=== PATIENT | male | born 1990 | race Caucasian/White ===

== ENCOUNTER 2020-12-08 13:27 | Outpatient (REF) | payer OTHER, SELFPAY | END 2020-12-08 13:28 | disposition home or self-care (01) | LOC: HO.LAB 13:27 | PROVIDERS: Visit Provider Internal Medicine | DX: Z20.822 Contact with and (suspected) exposure to COVID-19 (principal) | CPT/HCPCS: 36415; C9803; U0003; U0005 ==

== ENCOUNTER 2021-12-07 10:38 | Emergency (ER) | payer OTHER, SELFPAY ==
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
[2021-12-07 10:58] VITALS: BP 153/74; PULSE 94; RESP 16; TEMP 36.4; O2SAT 98; BMI 30.1
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
[2021-12-07] MEDS: 0.9 % Sodium Chloride 1,000 ML 999 ML IVCONT ×2 (12:39→14:04)
[2021-12-07 12:44] LABS: MANUAL DIFF FLAG NO
[2021-12-07] MEDS: Acetaminophen 325 MG TABLET 975 MG PO (12:45)
[2021-12-07] MEDS: oxyCODONE HCl Immed Release 5 MG TABLET PO (12:45)
[2021-12-07 12:46] LABS: Basophils Percent Auto 0.4 % (0-2); Eosinophils Absolute Auto 0.1 X10*3/uL (0.0-0.4); Eosinophils Percent Auto 0.7 % (0-4); Hematocrit 39.7 % (42.0-52.0); Hemoglobin 13.3 g/dl (14.0-18.0); Imm Gran Abs Auto 0.07 X10*3/uL (0.00-0.03); Imm Gran Pct Auto 0.7 % (0.0-0.4); Lymphocytes Absolute Auto 1.6 X10*3/uL (1.2-4.9); Lymphocytes Percent Auto 16.5 % (20-40); Mean Corpuscular HGB Conc 33.5 g/dl (31.0-36.0); Mean Corpuscular Hemoglobin 30.6 pg (27.0-33.0); Mean Corpuscular Volume 91.3 fL (80.0-98.0); Mean Platelet Volume 9.9 fL (9.4-12.4); Monocytes Absolute Auto 1.1 X10*3/uL (0.1-1.2); Monocytes Percent Auto 11.8 % (2-11); Neutrophils Absolute Auto 6.7 x10*3/uL (2.0-8.3); Neutrophils Percent Auto 69.9 % (45-73); Platelet Count 250 X10*3/uL (160-400); Red Blood Count 4.35 X10*6/uL (4.60-5.80); Red Cell Distribution Width 12.1 % (11.0-16.0); White Blood Count 9.6 X10*3/uL (4.8-10.8)
[2021-12-07 13:21] LABS: Alanine Aminotransferase 50 U/L (0-40); Albumin Level 3.9 g/dL (3.5-5.0); Alkaline Phosphatase 71 U/L (39-117); Anion Gap 10 (12-20); Aspartate Amino Transferase 96 U/L (5-37); Bilirubin Total 0.9 mg/dL (0.0-1.0); Blood Urea Nitrogen 20 mg/dL (9-16); Calcium 9.5 mg/dL (8.4-10.2); Carbon Dioxide 31 mmol/L (22-29); Chloride 106 mmol/L (96-108); Creatinine Clr Calc Pharmacy 107.9; Estimated Glomerular Filt Rate > 60; Glucose Random 101 mg/dL (60-115); Magnesium 2.2 mg/dL (1.6-2.6); Potassium 4.3 mmol/L (3.3-5.1); Sodium 143 mmol/L (135-145); Total Protein 7.1 g/dL (6.5-8.0)
[2021-12-07 14:38] LABS: COVID-19 Test Negative (Negative)
[2021-12-07] MEDS: iohexoL 350 MG/ML 100 ML INFUS..BTL IV (14:47)
[2021-12-07 15:08] LABS: Appearance Urine CLEAR; Color Urine YELLOW; Glucose Urine UA NEG (NEG); Leukocyte Esterase Urine NEG (NEG); Nitrite Urine NEG (NEG); Urine Blood NEG (NEG); Urine Ketones NEG (NEG); Urine Protein NEG (NEG-TRACE)
== END 2021-12-07 16:55 | disposition home or self-care (01) ==
PROVIDERS: Physician Assistant Medical; Emergency Provider Emergency Medicine
DX: T79.6XXA Traumatic ischemia of muscle, initial encounter (principal); S30.0XXA Contusion of lower back and pelvis, initial encounter; S20.223A Contusion of bilateral back wall of thorax, initial encounter; Y00.XXXA Assault by blunt object, initial encounter; Y93.9 Activity, unspecified; Y92.410 Unspecified street and highway as the place of occurrence of the external cause; Y99.9 Unspecified external cause status; Z20.822 Contact with and (suspected) exposure to COVID-19
CPT/HCPCS: 36415; 70450; 71260; 72125; 74177; 80053; 81003; 82550; 83735; 85025; 85610; 87635; 96360; 96361; 99284; 99291; Q9967

== ENCOUNTER 2023-03-17 00:40 | Emergency (ER) | payer OTHER, SELFPAY ==
[2023-03-17 00:41] VITALS: BP 145/76; PULSE 115; RESP 18; TEMP 36.3; O2SAT 100; BMI 31.9
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
[2023-03-17 00:58] LABS: MANUAL DIFF FLAG NO
[2023-03-17 00:59] LABS: Basophils Percent Auto 0.5 % (0-2); Eosinophils Percent Auto 0.5 % (0-4); Hematocrit 41.8 % (42.0-52.0); Hemoglobin 14.5 g/dl (14.0-18.0); Imm Gran Abs Auto 0.02 X10*3/uL (0.00-0.03); Imm Gran Pct Auto 0.2 % (0.0-0.4); Lymphocytes Absolute Auto 1.3 X10*3/uL (1.2-4.9); Lymphocytes Percent Auto 15.8 % (20-40); Mean Corpuscular HGB Conc 34.7 g/dl (31.0-36.0); Mean Corpuscular Hemoglobin 30.9 pg (27.0-33.0); Mean Corpuscular Volume 88.9 fL (80.0-98.0); Mean Platelet Volume 9.6 fL (9.4-12.4); Monocytes Absolute Auto 0.7 X10*3/uL (0.1-1.2); Monocytes Percent Auto 9.1 % (2-11); Neutrophils Percent Auto 73.9 % (45-73); Platelet Count 305 X10*3/uL (160-400); Red Cell Distribution Width 11.9 % (11.0-16.0); White Blood Count 8.1 X10*3/uL (4.8-10.8)
[2023-03-17 01:20] LABS: Anion Gap 16 (12-20); Blood Urea Nitrogen 19 mg/dL (9-16); Calcium 9.2 mg/dL (8.4-10.2); Carbon Dioxide 23 mmol/L (22-29); Chloride 106 mmol/L (96-108); Creatinine Clr Calc Pharmacy 129.4; Estimated Glomerular Filt Rate > 60; Glucose Random 96 mg/dL (60-115); Potassium 3.8 mmol/L (3.3-5.1); Sodium 141 mmol/L (135-145); Troponin-I High Sensitivity < 2.7 ng/L (<3.5-35.0)
[2023-03-17 01:23] LABS: Alanine Aminotransferase 18 U/L (0-40); Albumin Level 4.1 g/dL (3.5-5.0); Alkaline Phosphatase 83 U/L (39-117); Aspartate Amino Transferase 35 U/L (5-37); Bilirubin Direct 0.1 mg/dL (0.0-0.5); Bilirubin Total 0.4 mg/dL (0.0-1.0); Ethanol 21 mg/dL; Lipase 21 U/L (8-78); Magnesium 2.1 mg/dL (1.6-2.6); Total Protein 7.6 g/dL (6.5-8.0)
--- NOTE | 2023-03-17 01:29 | ED_ITS ---
HPI - Chest Pain General Chief Complaint: Chest Pain Stated Complaint: Stroke like symptoms? Chest pain left arm numbness Time Seen by Provider: 03/17/23 01:06 Source: patient Mode of arrival: ambulatory History of Present Illness HPI narrative: 32-year-old male presents with acute onset of chest pain this evening after drinking alcohol and endorsing that he also snorted cocaine. The chest pain radiated in to the left upper extremity but states at this time has completely resolved. Patient also states that he felt weird in his head but that has also resolved. Patient states he cannot stay as he has things to do but is willing to wait for complete lab work Related Data Previous Rx's Medication Instructions Recorded acetaminophen 500 mg tablet 1,000 mg PO QID PRN fever or pain 12/07/21 (Tylenol Extra Strength) #14 tabs cyclobenzaprine 10 mg tablet 10 mg PO Q8H PRN Muscle spasm #14 12/07/21 tabs oxycodone 5 mg tablet 5 mg PO Q6H PRN pain #14 tabs 12/07/21 Allergies Allergy/AdvReac Type Severity Reaction Status Date / Time No Known Allergies Allergy Unverified 06/24/20 17:51 Review of Systems Review of Systems: Pertinent positives and negatives as stated in HPI [facility] Past Medical History Source: nursing notes reviewed Medical History No known health problems Social History Social History Alcohol intake: current Alcohol intake frequency: a few times a week Alcohol type: beer and wine Smoked in Last 30 Days: Yes Use of substances other than those prescribed or required for medical reasons: Yes Substance Use Type: Crack/Cocaine Advance Directives: No Advance Directives Information Provided: No Physical Exam Vital Signs: Vital Signs: Last Vital Signs Temp 97.3 F 03/17/23 00:41 Pulse 115 H 03/17/23 00:41 Resp 18 03/17/23 00:41 BP 145/76 H 03/17/23 00:41 Pulse Ox 100 03/17/23 00:41 O2 Del Method Room Air 03/17/23 00:41 BMI result Body Mass Index 31.9 VITAL SIGNS: Reviewed. GENERAL: Well developed, well nourished, in no acute distress. HEAD: Normocephalic/atraumatic EYES: PERRLA, EOMI EARS: Ext canals without abnormality NOSE: Nares patent bilateral OROPHARYNX: no oral lesions noted, posterior pharynx clear NECK: Supple, no adenopathy LUNGS: Normal breath sounds. No adventitious sounds or accessory muscle use. S pO2<100> CARDIOVASCULAR: Regular rate and rhythm without noted murmurs ABDOMEN: Soft, non-tender, non-distended with bowel sounds. MUSCULOSKELETAL: No tenderness, deformities, or effusions noted on gross inspection. EXTREMITIES: No cyanosis, clubbing or edema. SKIN: Inspection of the skin reveals no rashes NEUROLOGIC: Alert and oriented x 4. Strength and sensation to light touch were grossly intact x 4, no facial asymmetry, no pronator drift, cranial nerves 2-12 are grossly intact. Medical Decision Making Medical Decision Making MDM Narrative: 32-year-old male who has been doing cocaine for the past 3 weeks and likely experienced an acute FX after snorting cocaine this evening as he stated he had been having chest discomfort for the past couple of days. All of his symptoms have resolved at this time and he does not exhibit any focal deficits. I reviewed all investigations and my interpretation is that this was likely an acute ischemic episode related to cocaine use. Patient is completely asymptomatic, hemodynamically stable, and is demanding to leave. He is, cooperative and was counseled on at stopping the use of cocaine as it could be far worse next time. Differential Diagnosis Please see the discussion above Lab Data Please see the discussion above 03/17/23 00:54 03/17/23 00:54 Labs: Lab Results 03/17/23 03/17/23 03/17/23 Range/Units 00:54 00:54 00:54 WBC 8.1 (4.8-10.8) X10*3/uL RBC 4.70 (4.60-5.80) X10*6/uL Hgb 14.5 (14.0-18.0) g/dl Hct 41.8 L (42.0-52.0) % MCV 88.9 (80.0-98.0) fL MCH 30.9 (27.0-33.0) pg MCHC 34.7 (31.0-36.0) g/dl RDW 11.9 (11.0-16.0) % Plt Count 305 (160-400) X10*3/uL MPV 9.6 (9.4-12.4) fL Immature Gran % (Auto) 0.2 (0.0-0.4) % Neut % (Auto) 73.9 H (45-73) % Lymph % (Auto) 15.8 L (20-40) % [place] % (Auto) 9.1 (2-11) % Eos % (Auto) 0.5 (0-4) % Baso % (Auto) 0.5 (0-2) % Lymph # (Auto) 1.3 (1.2-4.9) X10*3/uL [place] # (Auto) 0.7 (0.1-1.2) X10*3/uL Eos # (Auto) 0.0 (0.0-0.4) X10*3/uL Baso # (Auto) 0.0 (0.0-0.2) X10*3/uL Abs Immat Gran (auto) 0.02 (0.00-0.03) X10*3/uL Absolute Neuts (auto) 6.0 (2.0-8.3) x10*3/uL Absolute Nucleated RBC 0.000 (0.0-0.012) X10*3/uL Nucleated RBC % (auto) 0.0 (0.0-0.2) /100WBC Sodium 141 (135-145) mmol/L Potassium 3.8 (3.3-5.1) mmol/L Chloride 106 (96-108) mmol/L Carbon Dioxide 23 (22-29) mmol/L Anion Gap 16 (12-20) BUN 19 H (9-16) mg/dL Creatinine 0.90 (0.5-1.4) mg/dL Estim Creat Clear Calc 129.4 Estimated GFR > 60 Random Glucose 96 (60-115) mg/dL Calcium 9.2 (8.4-10.2) mg/dL Magnesium 2.1 (1.6-2.6) mg/dL Total Bilirubin 0.4 (0.0-1.0) mg/dL Direct Bilirubin 0.1 (0.0-0.5) mg/dL AST 35 (5-37) U/L ALT 18 (0-40) U/L Alkaline Phosphatase 83 (39-117) U/L Troponin I High Sens < 2.7 (<3.5-35.0) ng/L Total Protein 7.6 (6.5-8.0) g/dL Albumin 4.1 (3.5-5.0) g/dL Lipase 21 (8-78) U/L Ethyl Alcohol 21 mg/dL Independent Interpretation I performed an independent interpretation of an: EKG Interpretation: Sinus tachycardia, HR-103, no STEMI, KS/QRS/QTC is within normal limits. Discharge Plan Discharge Clinical Impression: Cocaine use, Chest pain Patient Disposition: Home, Self-Care Instructions: Chest Pain (ED) Additional Instructions: 1. Please follow-up with primary care provider on Sunday morning. Return ER for any worsening symptoms. Prescriptions: No Action acetaminophen [Tylenol Extra Strength] 500 mg tablet 1,000 mg PO QID PRN (Reason: fever or pain) Qty: 14 0RF cyclobenzaprine 10 mg tablet 10 mg PO Q8H PRN (Reason: Muscle spasm) Qty: 14 0RF oxycodone 5 mg tablet 5 mg PO Q6H PRN (Reason: pain) Qty: 14 0RF
[2023-03-17 01:51] VITALS: BP 121/74; PULSE 83; RESP 16; TEMP 37.1; O2SAT 95
== END 2023-03-17 01:53 | disposition home or self-care (01) ==
PROVIDERS: Emergency Provider Student in an Organized Health Care Education/Training Program
DX: R07.9 Chest pain, unspecified (principal); F14.90 Cocaine use, unspecified, uncomplicated; R00.0 Tachycardia, unspecified
CPT/HCPCS: 36415; 80048; 80076; 80307; 83690; 83735; 84484; 85025; 93005; 99283; 99285

== ENCOUNTER 2023-12-07 10:07 | Emergency (ER) | payer OTHER, SELFPAY ==
[2023-12-07 10:10] VITALS: BP 118/74; PULSE 84; RESP 16; TEMP 36.7; O2SAT 96; BMI 34.0
--- NOTE | 2023-12-07 10:14 | ECG_ITS ---
Test Reason : cp Blood Pressure : / mmHG Vent. Rate : 088 BPM Atrial Rate : 088 BPM P-R Int : 144 ms QRS Dur : 090 ms QT Int : 364 ms P-R-T Axes : 070 022 027 degrees QTc Int : 440 ms Normal sinus rhythm Normal ECG When compared with ECG of 17-MAR-2023 00:46, No significant change was found Referred By: Generic ED Physician Electronically Signed By:EMERSON GRIFFIN
[2023-12-07 10:25] LABS: MANUAL DIFF FLAG NO
[2023-12-07 10:31] LABS: Basophils Percent Auto 0.3 % (0-2); Eosinophils Absolute Auto 0.1 X10*3/uL (0.0-0.4); Eosinophils Percent Auto 1.1 % (0-4); Hematocrit 44.3 % (42.0-52.0); Hemoglobin 15.5 g/dl (14.0-18.0); Imm Gran Abs Auto 0.01 X10*3/uL (0.00-0.03); Imm Gran Pct Auto 0.2 % (0.0-0.4); Lymphocytes Absolute Auto 1.6 X10*3/uL (1.2-4.9); Lymphocytes Percent Auto 25.2 % (20-40); Mean Corpuscular Hemoglobin 30.8 pg (27.0-33.0); Mean Corpuscular Volume 88.1 fL (80.0-98.0); Mean Platelet Volume 9.4 fL (9.4-12.4); Monocytes Absolute Auto 0.6 X10*3/uL (0.1-1.2); Monocytes Percent Auto 9.3 % (2-11); Neutrophils Absolute Auto 4.1 x10*3/uL (2.0-8.3); Neutrophils Percent Auto 63.9 % (45-73); Platelet Count 293 X10*3/uL (160-400); Red Blood Count 5.03 X10*6/uL (4.60-5.80); Red Cell Distribution Width 11.5 % (11.0-16.0); White Blood Count 6.4 X10*3/uL (4.8-10.8)
[2023-12-07 10:42] LABS: Anion Gap 12 (12-20); Blood Urea Nitrogen 20 mg/dL (9-16); Calcium 9.1 mg/dL (8.4-10.2); Carbon Dioxide 29 mmol/L (22-29); Chloride 103 mmol/L (96-108); Creatinine Clr Calc Pharmacy 122.6; Estimated Glomerular Filt Rate > 60; Glucose Random 103 mg/dL (60-115); Potassium 3.6 mmol/L (3.3-5.1); Sodium 140 mmol/L (135-145)
[2023-12-07 10:53] LABS: Troponin-I High Sensitivity < 2.7 ng/L (<3.5-35.0)
[2023-12-07 12:17] LABS: Alanine Aminotransferase 16 U/L (0-40); Albumin Level 4.2 g/dL (3.5-5.0); Alkaline Phosphatase 74 U/L (39-117); Aspartate Amino Transferase 17 U/L (5-37); Bilirubin Direct 0.1 mg/dL (0.0-0.5); Bilirubin Total 0.4 mg/dL (0.0-1.0); Lipase 24 U/L (8-78); Total Protein 7.5 g/dL (6.5-8.0)
[2023-12-07 13:08] VITALS: BP 131/61; PULSE 77; RESP 16; TEMP 37; O2SAT 98
--- NOTE | 2023-12-07 13:09 | ED_ITS ---
HPI - Chest Pain General Chief Complaint: Chest Pain Stated Complaint: heart burn Time Seen by Provider: 12/07/23 13:09 Source: patient, RN notes reviewed and old records reviewed Mode of arrival: ambulatory Limitations: no limitations History of Present Illness HPI narrative: 33-year-old male with past medical history significant for GERD presents for evaluation of chest pain Patient reports waking up at 4:00 a.m. with burning chest pain. He took his omeprazole, [place] and aspirin with little relief at the time of presentation Currently he states his symptoms have improved greatly Denies any shortness of breath, palpitations No other complaints or concerns at this time Patient reports that he takes omeprazole but only when he feels his heartburn is acting up Related Data Previous Rx's Medication Instructions Recorded acetaminophen 500 mg tablet 1,000 mg (2 x 500 mg) PO QID PRN 12/07/21 (Tylenol Extra Strength) fever or pain #14 tabs cyclobenzaprine 10 mg tablet 10 mg PO Q8H PRN Muscle spasm #14 12/07/21 tabs oxycodone 5 mg tablet 5 mg PO Q6H PRN pain #14 tabs 12/07/21 Allergies Allergy/AdvReac Type Severity Reaction Status Date / Time No Known Allergies Allergy Verified 12/07/23 10:10 Review of Systems 2 Constitutional: Constitutional: Denies chills and Denies fever(s) Eyes: Eyes: Denies blurry vision Cardiovascular: Cardiovascular: Reports chest pain Gastrointestinal: Gastrointestinal: Reports abdominal pain, Denies diarrhea and Denies nausea Musculoskeletal: Musculoskeletal: Denies back pain Integumentary/Breasts: Skin/Breast: Denies rash PMFSH Past Medical History Medical History No known health problems Social History Social History Alcohol intake: current Alcohol intake frequency: a few times a week Alcohol type: beer and wine Substance Use Type: Crack/Cocaine Physical Exam 2 Vital Signs: Vital Signs: Last Vital Signs Temp 98.6 F 12/07/23 13:08 Pulse 77 12/07/23 13:08 Resp 16 12/07/23 13:08 BP 131/61 12/07/23 13:08 Pulse Ox 98 12/07/23 13:08 O2 Del Method Room Air 12/07/23 13:08 BMI result Body Mass Index 34.0 Const: General: healthy appearing, comfortable, no acute distress, alert and awake Nutritional Appearance: well nourished Orientation/consciousness: p atient oriented x3 HEENT: Head: Yes normocephalic and Yes atraumatic Eyes: Eyelids: Yes eyelids normal Conjunctivae: conjunctivae normal S clerae: sclerae normal Corneas: corneas normal Pupils: Equal, round and reactive pupils present EOM: EOMs intact bilaterally Neck: Neck: Yes full ROM Resp: Effort & Inspection: normal respiratory effort, able to speak in complete sentences and not labored Skin: General skin exam: elasticity normal Neuro: General: patient oriented x3 Cranial nerves: Yes Equal, round and reactive pupils present and Yes Bilaterally intact EOM present Cognition (Neuro): normal cognition Course Reevaluation(s) Reevaluation #1: Patient's workup reviewed, EKG is nonischemic, troponin is negative. Given that his troponin was drawn over 6 hours after the onset of his symptoms, I do not see any indication to repeat troponin. The patient has ruled out for ACS. He is currently asymptomatic, he is stable for discharge Time: 13:12 Medical Decision Making Medical Decision Making [facility] Narrative: 33-year-old male presents for evaluation of chest pain. His symptoms started at 4:00 a.m.. Plan for labs, EKG. Differential Diagnosis Differential Diagnoses: The differential diagnosis associated with the presentation includes Chest pain GERD ACS Gastritis Chest wall pain Admission/Observation Consideration of admission/observation: Escalation of care including admission/observation considered Considered admission for chest pain but the patient ruled out for ACS Lab Data [facility] Lab Attestation statement: I reviewed the patient's lab results. No leukocytosis or anemia. Normal platelet count. No electrolyte abnormalities. BUN is slightly elevated 20 with a normal creatinine of 0.97. Troponin undetectable 12/07/23 10:20 12/07/23 10:20 Labs: Lab Results 12/07/23 Range/Units 10:20 WBC 6.4 (4.8-10.8) X10*3/uL RBC 5.03 (4.60-5.80) X10*6/uL Hgb 15.5 (14.0-18.0) g/dl Hct 44.3 (42.0-52.0) % MCV 88.1 (80.0-98.0) fL MCH 30.8 (27.0-33.0) pg MCHC 35.0 (31.0-36.0) g/dl RDW 11.5 (11.0-16.0) % Plt Count 293 (160-400) X10*3/uL MPV 9.4 (9.4-12.4) fL Immature Gran % (Auto) 0.2 (0.0-0.4) % Neut % (Auto) 63.9 (45-73) % Lymph % (Auto) 25.2 (20-40) % [place] % (Auto) 9.3 (2-11) % Eos % (Auto) 1.1 (0-4) % Baso % (Auto) 0.3 (0-2) % Lymph # (Auto) 1.6 (1.2-4.9) X10*3/uL [place] # (Auto) 0.6 (0.1-1.2) X10*3/uL Eos # (Auto) 0.1 (0.0-0.4) X10*3/uL Baso # (Auto) 0.0 (0.0-0.2) X10*3/uL Abs Immat Gran (auto) 0.01 (0.00-0.03) X10*3/uL Absolute Neuts (auto) 4.1 (2.0-8.3) x10*3/uL Absolute Nucleated RBC 0.000 (0.0-0.012) X10*3/uL Nucleated RBC % (auto) 0.0 (0.0-0.2) /100WBC Sodium 140 (135-145) mmol/L Potassium 3.6 (3.3-5.1) mmol/L Chloride 103 (96-108) mmol/L Carbon Dioxide 29 (22-29) mmol/L Anion Gap 12 (12-20) BUN 20 H (9-16) mg/dL Creatinine 0.97 (0.5-1.4) mg/dL Estim Creat Clear Calc 122.6 Estimated GFR > 60 Random Glucose 103 (60-115) mg/dL Calcium 9.1 (8.4-10.2) mg/dL Total Bilirubin 0.4 (0.0-1.0) mg/dL Direct Bilirubin 0.1 (0.0-0.5) mg/dL AST 17 (5-37) U/L ALT 16 (0-40) U/L Alkaline Phosphatase 74 (39-117) U/L Troponin I High Sens < 2.7 (<3.5-35.0) ng/L Total Protein 7.5 (6.5-8.0) g/dL Albumin 4.2 (3.5-5.0) g/dL Lipase 24 (8-78) U/L Independent Interpretation I performed an independent interpretation of an: EKG (Normal sinus rhythm with a rate of 88 beats per minute. No ST segment changes) Discharge Plan Discharge Clinical Impression: Chest pain, Chest pain due to GERD Patient Disposition: Home, Self-Care Instructions: Chest Pain (ED) Additional Instructions: Your workup in the ER today was reassuring. This includes your blood work as well as her EKG. I recommend that you take your omeprazole daily for the next week Avoid spicy, greasy foods as this will likely worsen your heartburn Follow-up with your primary doctor return for new or worsening symptoms Prescriptions: No Action acetaminophen [Tylenol Extra Strength] 500 mg tablet 1,000 mg PO QID PRN (Reason: fever or pain) Qty: 14 0RF cyclobenzaprine 10 mg tablet 10 mg PO Q8H PRN (Reason: Muscle spasm) Qty: 14 0RF oxycodone 5 mg tablet 5 mg PO Q6H PRN (Reason: pain) Qty: 14 0RF
== END 2023-12-07 13:17 | disposition home or self-care (01) ==
LOC: HO.ED 13:14
PROVIDERS: Physician Assistant Medical; Emergency Provider Emergency Medicine Emergency Medical Services
DX: K21.9 Gastro-esophageal reflux disease without esophagitis (principal); Z79.899 Other long term (current) drug therapy
CPT/HCPCS: 36415; 80048; 80076; 83690; 84484; 85025; 93005; 99283

== ENCOUNTER → 2023-12-07 10:14 | Outpatient (BNV) | payer OTHER, SELFPAY | PROVIDERS: Emergency Provider Emergency Medicine Emergency Medical Services; Visit Provider Internal Medicine | DX: R07.9 Chest pain, unspecified (principal) | CPT/HCPCS: 93010 ==

== ENCOUNTER 2024-01-02 17:45 | Emergency (ER) | payer OTHER, SELFPAY ==
--- NOTE | ~2024-01-02 | XR_ITS ---
EXAMINATION: XR TIBIA AND FIBULA, RIGHT CLINICAL INFORMATION: Fall. Pain and swelling. COMPARISON: None available. TECHNIQUE: AP and lateral views of the right tibia and fibula were obtained. FINDINGS: Bone alignment is normal. No acute fracture or dislocation. Question old healed distal tibial shaft fracture. Normal knee and ankle joints. Mild soft tissue swelling over the natarajan. XR/XR tibia fibula RT 2V IMPRESSION: No acute fracture or dislocation. Mild soft tissue swelling over the natarajan.
[2024-01-02 18:14] VITALS: BP 139/69; PULSE 84; RESP 16; TEMP 36.7; O2SAT 99; BMI 33.8
--- NOTE | 2024-01-02 18:17 | ED.LOWEXIN ---
HPI - Extremity Injury (Lower) General Chief Complaint: Extremity Injury, Lower Stated Complaint: leg pain Time Seen by Provider: 01/02/24 20:43 Source: patient Mode of arrival: ambulatory Limitations: no limitations History of Present Illness HPI Narrative: 33-year-old male otherwise healthy presents emergency department 5 days after starting laceration to his right natarajan states he fell and hurt that time he is got large hematoma with laceration surrounding redness warmth tenderness. Patient denies any injuries denies fevers chills cough or shortness of breath. MD complaint: leg injury Related Data Previous Rx's Medication Instructions Recorded acetaminophen 500 mg tablet 1,000 mg (2 x 500 mg) PO QID PRN 12/07/21 (Tylenol Extra Strength) fever or pain #14 tabs cyclobenzaprine 10 mg tablet 10 mg PO Q8H PRN Muscle spasm #14 12/07/21 tabs oxycodone 5 mg tablet 5 mg PO Q6H PRN pain #14 tabs 12/07/21 acetaminophen 325 mg tablet 325 mg PO QID PRN pain #90 tabs 01/02/24 (Tylenol) doxycycline hyclate 100 mg capsule 100 mg PO BID Cellulitis #20 caps 01/02/24 ibuprofen 400 mg tablet 400 mg PO Q6H PRN Pain #60 tabs 01/02/24 morphine 15 mg immediate release 7.5 mg (1/2 x 15 mg) PO Q8H PRN 01/02/24 tablet pain #10 tabs Allergies Allergy/AdvReac Type Severity Reaction Status Date / Time No Known Allergies Allergy Verified 12/07/23 10:10 Review of Systems Review of Systems: Review of systems: General: Patient denies any fever chills recent illness or falls Musculoskeletal: Denies back pain or body aches or other injuries HEENT: denies headache, runny nose, ear pain Respiratory: denies shortness of breath, cough Cardiovascular: no chest pain or palpitations : denies dysuria, frequency Abdomen: no nausea vomiting denies abdominal pain Extremities: Right natarajan pain and swelling Skin: no diaphoresis Yes all other systems are reviewed and are negative PMFSH Past Medical History Medical History No known health problems Social History Social History Alcohol intake: current Alcohol intake frequency: a few times a week Alcohol type: beer and wine Smoked in Last 30 Days: No Use of substances other than those prescribed or required for medical reasons: No Substance Use Type: Crack/Cocaine Advance Directives: No Advance Directives Information Provided: No Physical Exam Vital Signs: Vital Signs: Last Vital Signs Temp 98.1 F 01/02/24 18:14 Pulse 84 01/02/24 18:14 Resp 16 01/02/24 18:14 BP 139/69 01/02/24 18:14 Pulse Ox 99 01/02/24 18:14 O2 Del Method Room Air 01/02/24 18:14 BMI result Body Mass Index 33.8 General: Well-appearing well-nourished in no signs of distress HEENT: Normocephalic atraumatic Neck: No signs of JVD, no masses no tenderness or lymphadenopathy Cardiovascular: Regular rate and rhythm Respiratory: Clear to auscultation bilaterally Abdomen: Soft nontender no masses Extremities: Normal pedal pulses no signs of edema Skin: Dry warm mission redness swelling sense a hematoma signs of cellulitis Back: No tenderness full ROM Course Course Course Narrative: This is an RME: Additional HPI, ROS, PE not included below will be deferred to primary provider. This is a 33-year-old male, with no known medical problems, presenting to the emergency department with complaints of right leg pain status post mechanical fall which occurred 5 days ago. Patient has healing laceration noted to his right tib-fib with surrounding hematoma erythema and warmth. No fevers or chills. Plan: X-ray, basic labs, further ER evaluation needed. Medical Decision Making Medical Decision Making [facility] Narrative: This looks like an infection I will start the patient doxycycline think the patient is safe to go home. Patient states he has been taking ibuprofen without relief of symptoms hoping for something stronger I did review his mass [employer] patient has had no prescriptions in the past. He did get oxycodone here 2 years ago. I do feel comfortable sending her patient morphine patient drove here so I explained to him that I can not give him a dose here but I will send to his pharmacy patient is happy with the plan. Differential Diagnosis Differential Diagnoses: The differential diagnosis associated with the presentation includes Cellulitis deep space infection unlikely DVT Admission/Observation Consideration of admission/observation: Escalation of care including admission/observation considered Lab Data [facility] Lab Attestation statement: I reviewed the patient's lab results. 01/02/24 18:34 01/02/24 18:34 Labs: Lab Results 01/02/24 Range/Units 18:34 WBC 9.0 (4.8-10.8) X10*3/uL RBC 4.59 L (4.60-5.80) X10*6/uL Hgb 14.3 (14.0-18.0) g/dl Hct 42.0 (42.0-52.0) % MCV 91.5 (80.0-98.0) fL MCH 31.2 (27.0-33.0) pg MCHC 34.0 (31.0-36.0) g/dl RDW 12.0 (11.0-16.0) % Plt Count 301 (160-400) X10*3/uL MPV 9.7 (9.4-12.4) fL Immature Gran % (Auto) 0.2 (0.0-0.4) % Neut % (Auto) 73.9 H (45-73) % Lymph % (Auto) 17.7 L (20-40) % [place] % (Auto) 7.5 (2-11) % Eos % (Auto) 0.4 (0-4) % Baso % (Auto) 0.3 (0-2) % Lymph # (Auto) 1.6 (1.2-4.9) X10*3/uL [place] # (Auto) 0.7 (0.1-1.2) X10*3/uL Eos # (Auto) 0.0 (0.0-0.4) X10*3/uL Baso # (Auto) 0.0 (0.0-0.2) X10*3/uL Abs Immat Gran (auto) 0.02 (0.00-0.03) X10*3/uL Absolute Neuts (auto) 6.6 (2.0-8.3) x10*3/uL Absolute Nucleated RBC 0.000 (0.0-0.012) X10*3/uL Nucleated RBC % (auto) 0.0 (0.0-0.2) /100WBC Sodium 140 (135-145) mmol/L Potassium 3.9 (3.3-5.1) mmol/L Chloride 106 (96-108) mmol/L Carbon Dioxide 27 (22-29) mmol/L Anion Gap 11 L (12-20) BUN 20 H (9-16) mg/dL Creatinine 0.86 (0.5-1.4) mg/dL Estim Creat Clear Calc 137.9 Estimated GFR > 60 Random Glucose 119 H (60-115) mg/dL Calcium 9.3 (8.4-10.2) mg/dL Total Bilirubin 0.6 (0.0-1.0) mg/dL AST 24 (5-37) U/L ALT 20 (0-40) U/L Alkaline Phosphatase 92 (39-117) U/L Total Protein 7.9 (6.5-8.0) g/dL Albumin 4.4 (3.5-5.0) g/dL Independent Interpretation I performed an independent interpretation of an: Plain X-Ray Radiology Impression Discussion of test interpretation with radiology: I have reviewed the radiologist's reading. External Record Review External record reviewed: Inpatient record Prescription Management I considered prescription management with: Antibiotic Discharge Plan Discharge Clinical Impression: Cellulitis of leg, right Patient Disposition: Home, Self-Care Instructions: Cellulitis (DC), Opioid Safety (ED) Additional Instructions: Using into emergency department for right natarajan injury. You had an x-ray and labs done withdrawal unremarkable in restarting antibiotics Please watch for signs of infection streaking up the leg or if you have any other concerns please return to the emergency department. Prescriptions: New acetaminophen [Tylenol] 325 mg tablet 325 mg PO QID PRN (Reason: pain) Qty: 90 0RF doxycycline hyclate 100 mg capsule 100 mg PO BID Qty: 20 0RF ibuprofen 400 mg tablet 400 mg PO Q6H PRN (Reason: Pain) Qty: 60 0RF morphine 15 mg tablet 7.5 mg PO Q8H PRN (Reason: pain) Qty: 10 0RF Rx Instructions: Partial Fill upon patient request. No Action acetaminophen [Tylenol Extra Strength] 500 mg tablet 1,000 mg PO QID PRN (Reason: fever or pain) Qty: 14 0RF cyclobenzaprine 10 mg tablet 10 mg PO Q8H PRN (Reason: Muscle spasm) Qty: 14 0RF oxycodone 5 mg tablet 5 mg PO Q6H PRN (Reason: pain) Qty: 14 0RF
[2024-01-02 18:38] LABS: MANUAL DIFF FLAG NO
[2024-01-02 18:40] LABS: Basophils Percent Auto 0.3 % (0-2); Eosinophils Percent Auto 0.4 % (0-4); Hemoglobin 14.3 g/dl (14.0-18.0); Imm Gran Abs Auto 0.02 X10*3/uL (0.00-0.03); Imm Gran Pct Auto 0.2 % (0.0-0.4); Lymphocytes Absolute Auto 1.6 X10*3/uL (1.2-4.9); Lymphocytes Percent Auto 17.7 % (20-40); Mean Corpuscular Hemoglobin 31.2 pg (27.0-33.0); Mean Corpuscular Volume 91.5 fL (80.0-98.0); Mean Platelet Volume 9.7 fL (9.4-12.4); Monocytes Absolute Auto 0.7 X10*3/uL (0.1-1.2); Monocytes Percent Auto 7.5 % (2-11); Neutrophils Absolute Auto 6.6 x10*3/uL (2.0-8.3); Neutrophils Percent Auto 73.9 % (45-73); Platelet Count 301 X10*3/uL (160-400); Red Blood Count 4.59 X10*6/uL (4.60-5.80)
[2024-01-02 18:57] LABS: Alanine Aminotransferase 20 U/L (0-40); Albumin Level 4.4 g/dL (3.5-5.0); Alkaline Phosphatase 92 U/L (39-117); Anion Gap 11 (12-20); Aspartate Amino Transferase 24 U/L (5-37); Bilirubin Total 0.6 mg/dL (0.0-1.0); Blood Urea Nitrogen 20 mg/dL (9-16); Calcium 9.3 mg/dL (8.4-10.2); Carbon Dioxide 27 mmol/L (22-29); Chloride 106 mmol/L (96-108); Creatinine Clr Calc Pharmacy 137.9; Estimated Glomerular Filt Rate > 60; Glucose Random 119 mg/dL (60-115); Potassium 3.9 mmol/L (3.3-5.1); Sodium 140 mmol/L (135-145); Total Protein 7.9 g/dL (6.5-8.0)
[2024-01-02] MEDS: Ibuprofen 400 MG TABLET PO (21:08)
[2024-01-02] MEDS: Doxycycline Monohydrate 100 MG CAPSULE PO (21:08)
[2024-01-02 21:15] VITALS: BP 130/78; PULSE 84; RESP 16; TEMP 36.6; O2SAT 99
[2024-01-02 21:17] VITALS: BP 130/78; PULSE 84; RESP 16; TEMP 36.6; O2SAT 99
== END 2024-01-02 21:19 | disposition home or self-care (01) ==
PROVIDERS: Physician Assistant Medical; Emergency Provider Student in an Organized Health Care Education/Training Program
DX: L03.115 Cellulitis of right lower limb (principal); M79.661 Pain in right lower leg
CPT/HCPCS: 36415; 73590; 80053; 85025; 99283; 99284

== ENCOUNTER 2024-03-23 11:14 | Emergency (ER) | payer OTHER, SELFPAY ==
[2024-03-23 11:16] VITALS: BP 126/64; PULSE 80; RESP 18; TEMP 36.6; O2SAT 98; BMI 32.9
--- NOTE | 2024-03-23 11:16 | ED.DENTAL ---
HPI - Dental/Oral General Chief complaint: Dental/Oral Stated complaint: dental pain Time Seen by Provider: 03/23/24 11:28 Source: patient Mode of arrival: ambulatory Limitations: no limitations History of Present Illness ED Provider: Tammy Espinoza PA-C HPI Narrative: Patient is a 33 year old assigned male at with a history of wisdom tooth extraction 1.5 months ago, presenting to the emergency department today with persistent left lower dental pain post wisdom tooth extraction. Patient states that over the last month and a half he has continued to have left lower dental pain after having his wisdom tooth taken out. Patient states that he has tried to get in contact with the original dentist numerous times and has not been successful. Patient denies any dizziness, lightheadedness, abdominal pain, nausea, vomiting, fever, chills, blurry vision, double vision, loss of vision, chest pain, difficulty breathing, shortness of breath, back pain, night sweats, pain with urination, increased urinary frequency, increased urinary urgency, blood in his urine or stool, syncope or a near syncopal episode, recent trauma or falls, bowel incontinence, bladder incontinence, or any other complaints at this time. Location: Tooth # (Left lower wisdom tooth) Onset (ago): month(s) (1.5) Duration: constant Severity: mild Severity scale (1-10): 3 Exacerbating factors: nothing Treatment prior to arrival: none Related Data Previous Rx's ?Medication ?Instructions ?Recorded acetaminophen 500 mg tablet 1,000 mg (2 x 500 mg) PO QID PRN 12/07/21 (Tylenol Extra Strength) fever or pain #14 tabs cyclobenzaprine 10 mg tablet 10 mg PO Q8H PRN Muscle spasm #14 12/07/21 tabs oxycodone 5 mg tablet 5 mg PO Q6H PRN pain #14 tabs 12/07/21 acetaminophen 325 mg tablet 325 mg PO QID PRN pain #90 tabs 01/02/24 (Tylenol) doxycycline hyclate 100 mg capsule 100 mg PO BID Cellulitis #20 caps 01/02/24 ibuprofen 400 mg tablet 400 mg PO Q6H PRN Pain #60 tabs 01/02/24 morphine 15 mg immediate release 7.5 mg (1/2 x 15 mg) PO Q8H PRN 03/27/24 tablet pain #10 tabs chlorhexidine gluconate 0.12 % 15 ml buccal BID #118 mL 03/23/24 mouthwash (Peridex) naproxen 500 mg tablet 500 mg PO BID 7 days #14 tabs 03/23/24 penicillin V potassium 500 mg 500 mg PO BID 10 days #20 tabs 03/23/24 tablet Allergies Allergy/AdvReac Type Severity Reaction Status Date / Time No Known Allergies Allergy Verified 03/23/24 11:17 Review of Systems Constitutional: Constitutional: Reports no additional constitutional complaints, Denies chills, Denies fever(s) and Denies night sweats Eyes: Eyes: Reports no additional eye complaints, Denies blurry vision, Denies change in vision, Denies diplopia, Denies eye discharge, Denies loss of vision and Denies eye pain ENT: Denies dizziness Comments: left lower dental pain Cardiovascular: Cardiovascular: Reports no additional cardiovascular complaints, Denies chest pain, Denies lightheadedness, Denies Loss of Consciousness and Denies dyspnea Respiratory: Respiratory: Reports no additional respiratory complaints and Denies dyspnea Gastrointestinal: Gastrointestinal: Reports no additional gastrointestinal complaints, Denies abdominal pain, Denies melena, Denies hematochezia, Denies change in bowel habits and Denies change in stool character Genitourinary: Genitourinary: Reports no additional male genitourinary complaints, Denies hematuria, Denies oliguria, Denies difficulty urinating, Denies dysuria, Denies urinary frequency, Denies urinary hesitancy, Denies urinary incontinence and Denies urinary urgency Musculoskeletal: Musculoskeletal: Reports no additional musculoskeletal complaints, Denies numbness and Denies tingling Neurologic: Denies dizziness, Denies loss of vision, Denies numbness and Denies tingling Psychiatric: Psychiatric: Reports no additional psychiatric complaints Endocrine: Endocrine: Reports no additional endocrine complaints Hematologic/Lymphatic: Hematologic/Lymphatic: Reports no additional hematologic/lymphatic complaints Allergic/Immunologic: Allergic/Immunologic: Reports no additional allergic/immunologic complaints PMFSH Past Medical History Attestation statement: The following information was validated with the patient. Source: old records reviewed and nursing notes reviewed Medical History No known health problems Social History Social History Alcohol intake: current Alcohol intake frequency: a few times a week Alcohol type: beer and wine Substance Use Type: Crack/Cocaine Advance Directives: No Advance Directives Information Provided: Yes Physical Exam Vital Signs: Vital Signs: Last Vital Signs Temp 98 F 03/23/24 12:10 Pulse 80 03/23/24 12:10 Resp 18 03/23/24 12:10 BP 126/64 03/23/24 12:10 Pulse Ox 98 03/23/24 12:10 O2 Del Method Room Air 03/23/24 12:10 BMI result Body Mass Index 32.9 Const: General: cooperative, no acute distress, alert and awake Nutritional Appearance: well nourished Orientation/consciousness: patient oriented x3 Limitations: no limitations HEENT: Head: Yes normal to inspection and Yes atraumatic Ears: hearing grossly normal bilaterally and external ears normal General nose exam: Normal external nose present, no nasal discharge noted and no epistaxis Face and sinus: Yes normal facial exam, No abrasion and No laceration Mouth: Normal oral and palatal mucosa present, no drooling and no muffled voice Teeth and gingiva: poor dentition and other (minimal erythema to the left lower extraction site) Eyes: General: appearance normal, both eyes and all related structures Periorbital: periorbital findings normal Eyelids: Yes eyelids normal Conjunctivae: conjunctivae normal Pupils: Equal, round and reactive pupils present EOM: EOMs intact bilaterally Neck: Neck: Yes normal visual inspection, Yes full ROM and Yes no lymphadenopathy Chest: Chest palpation & inspection: normal inspection of the chest Resp: Effort & Inspection: normal respiratory effort and able to speak in complete sentences GI: Inspection: Yes normal to inspection Neuro: General: patient oriented x3 and moves all extremities Cranial nerves: Yes Equal, round and reactive pupils present Cognition (Neuro): normal cognition Motor exam (neuro): 5/5 motor strength present throughout Sensory Exam: Normal double simultaneous stimulation for sensation Coordination: [id number] test normal Extrem: General: Yes normal to inspection, Yes full ROM and Yes capillary refill normal Psych: Appearance: grossly normal Mental Status: mental status grossly normal Affect: normal affect Attitude: cooperative Thought process: Normal thought process present Thought content: Normal thought content present Insight: Good insight present (Psych) Course Course Course Narrative: This is a Rapid Medical Examination (RME) performed by Kendrick Guallpa PA-C in triage. Full HPI, ROS, assessment and treatment plan per primary provider in the Main ED. 33 year old male here for eval of intractable dental pain x1 month s/p wisdom tooth extraction. Has follow up with dentist with unremarkable work up. He was prescribed amoxicillin by his dentist however stop taking this as he was feeling better. Did not complete the entire course. Has trialed Motrin and tylenol at home without relief. States he feels as though his neck is swelling now. Denies fever, chills. No obvious periapical abscess. No palpable fluctuance. No cervical LAD. No anterior neck swelling. Medical Decision Making Medical Decision Making MDM Narrative: Patient is a 33 year old assigned male at with a history of wisdom tooth extraction 1.5 months ago presenting to the emergency department today with left lower dental pain. Patient's physical exam showed mild erythema to the left lower extraction site with a small area of persistent opening. No drainage. I explained my physical exam findings to the patient. I answered all questions asked by the patient. Given the patient is post extraction, will cover with antibiotic. I stressed the importance of the patient taking his medication as prescribed. I stressed the importance of the patient following up with his primary care provider and a dentist. I stressed the importance of the patient returning to the emergency department immediately if his symptoms were to worsen or if he were to develop any dizziness, shortness of breath, difficulty breathing, chest pain, blurry vision, loss of vision, nausea, vomiting, abdominal pain, fever, chills, back pain, or any other complaints. Patient verbalized agreement and understanding with this treatment plan and discharge. Differential Diagnosis Differential Diagnoses: The differential diagnosis associated with the presentation includes Dental pain Dental infection Post operative dental complications Admission/Observation Consideration of admission/observation: Escalation of care including admission/observation considered Patient would have been admitted to the hospital had his clinical presentation warranted hospital admission. Prescription Management I considered prescription management with: Pain Medication (patient prescribed pain medication) and Antibiotic (patient prescribed an antibiotic given his post-operative status) Discharge Plan Discharge Clinical Impression: Pain in tooth Patient Disposition: Home, Self-Care Instructions: Toothache (ED) Additional Instructions: Follow up with your primary care provider and a dentist. Return to the emergency department immediately if your symptoms worsen or if you develop any dizziness, shortness of breath, difficulty breathing, chest pain, blurry vision, loss of vision, nausea, vomiting, abdominal pain, fever, chills, back pain, or any other complaints. Call or visit any of the clinics below to establish with a dentist: [facility] [address] [place] [address] [facility] [address] [place] [address] [facility] [address] [address] [facility] [address] [place] [address] [facility] [address] [facility] [address] [place] [address] [facility] [address] [place] [address] [address] [place] [address] Prescriptions: New penicillin V potassium 500 mg tablet 500 mg PO BID 10 Days Qty: 20 0RF naproxen 500 mg tablet 500 mg PO BID 7 Days Qty: 14 0RF chlorhexidine gluconate [Peridex] 0.12 % mouthwash 15 ml buccal BID Qty: 118 0RF No Action acetaminophen [Tylenol Extra Strength] 500 mg tablet 1,000 mg PO QID PRN (Reason: fever or pain) Qty: 14 0RF cyclobenzaprine 10 mg tablet 10 mg PO Q8H PRN (Reason: Muscle spasm) Qty: 14 0RF oxycodone 5 mg tablet 5 mg PO Q6H PRN (Reason: pain) Qty: 14 0RF acetaminophen [Tylenol] 325 mg tablet 325 mg PO QID PRN (Reason: pain) Qty: 90 0RF doxycycline hyclate 100 mg capsule 100 mg PO BID Qty: 20 0RF ibuprofen 400 mg tablet 400 mg PO Q6H PRN (Reason: Pain) Qty: 60 0RF morphine 15 mg tablet 7.5 mg PO Q8H PRN (Reason: pain) Qty: 10 0RF Rx Instructions: Partial Fill upon patient request. Referrals: [facility] [place] [Provider Group] (Call to establish and follow up with a primary care provider. If you already have a primary care provider, please follow up with them.) [facility] [place] Primary CareJo Ann [Provider Group] [facility] [place] Primary Lori Pettit [Provider Group] Interventions: ED Discharge Assessment Last Done: 03/23/24 12:10 Discharge Date/Time: 03/23/24 12:11 Print Language: Mohawk
[2024-03-23 12:10] VITALS: BP 126/64; PULSE 80; RESP 18; TEMP 36.6; O2SAT 98
== END 2024-03-23 12:11 | disposition home or self-care (01) ==
PROVIDERS: Emergency Provider Emergency Medicine Emergency Medical Services
DX: K08.89 Other specified disorders of teeth and supporting structures (principal)
CPT/HCPCS: 99282; 99283

== ENCOUNTER 2024-06-29 04:34 | Emergency (ER) | payer OTHER, SELFPAY ==
--- NOTE | 2024-06-29 | ECG_ITS ---
Test Reason : PALPATATIONS Blood Pressure : / mmHG Vent. Rate : 082 BPM Atrial Rate : 082 BPM P-R Int : 156 ms QRS Dur : 092 ms QT Int : 368 ms P-R-T Axes : 063 027 023 degrees QTc Int : 429 ms Normal sinus rhythm Normal ECG When compared with ECG of 07-DEC-2023 10:15, No significant change was found Referred By: Generic ED Physician Electronically Signed By:PHUONG JENKINS
[2024-06-29 04:38] VITALS: BP 130/73; PULSE 87; RESP 18; TEMP 36.7; O2SAT 99; BMI 31.1
[2024-06-29 05:05] LABS: MANUAL DIFF FLAG NO
[2024-06-29 05:07] LABS: Basophils Percent Auto 0.4 % (0-2); Eosinophils Absolute Auto 0.2 X10*3/uL (0.0-0.4); Eosinophils Percent Auto 1.5 % (0-4); Hematocrit 39.4 % (42.0-52.0); Imm Gran Abs Auto 0.02 X10*3/uL (0.00-0.03); Imm Gran Pct Auto 0.2 % (0.0-0.4); Lymphocytes Absolute Auto 2.2 X10*3/uL (1.2-4.9); Lymphocytes Percent Auto 22.1 % (20-40); Mean Corpuscular HGB Conc 35.5 g/dl (31.0-36.0); Mean Corpuscular Hemoglobin 31.5 pg (27.0-33.0); Mean Corpuscular Volume 88.7 fL (80.0-98.0); Mean Platelet Volume 9.5 fL (9.4-12.4); Monocytes Absolute Auto 1.1 X10*3/uL (0.1-1.2); Monocytes Percent Auto 10.6 % (2-11); Neutrophils Absolute Auto 6.5 x10*3/uL (2.0-8.3); Neutrophils Percent Auto 65.2 % (45-73); Platelet Count 312 X10*3/uL (160-400); Red Blood Count 4.44 X10*6/uL (4.60-5.80); Red Cell Distribution Width 11.8 % (11.0-16.0)
[2024-06-29 05:19] LABS: Alanine Aminotransferase 15 U/L (0-40); Alkaline Phosphatase 81 U/L (39-117); Anion Gap 10 (12-20); Aspartate Amino Transferase 25 U/L (5-37); Bilirubin Total 0.4 mg/dL (0.0-1.0); Blood Urea Nitrogen 14 mg/dL (9-16); Calcium 9.4 mg/dL (8.4-10.2); Carbon Dioxide 27 mmol/L (22-29); Chloride 105 mmol/L (96-108); Estimated Glomerular Filt Rate > 60; Glucose Random 102 mg/dL (60-115); Potassium 3.6 mmol/L (3.3-5.1); Sodium 138 mmol/L (135-145); Total Protein 7.2 g/dL (6.5-8.0)
[2024-06-29 05:27] LABS: Troponin-I High Sensitivity < 2.7 ng/L (<3.5-35.0)
== END 2024-06-29 06:50 | disposition left against medical advice (07) ==
PROVIDERS: Emergency Provider Emergency Medicine
DX: R00.2 Palpitations (principal); Z79.899 Other long term (current) drug therapy
CPT/HCPCS: 36415; 80053; 84484; 85025; 93005; 99283

== ENCOUNTER 2024-07-01 08:35 | Emergency (ER) | payer OTHER, SELFPAY ==
--- NOTE | ~2024-07-01 | XR_ITS ---
EXAMINATION: XR CHEST CLINICAL INFORMATION: Chest pressure COMPARISON: None available. TECHNIQUE: 2 views of the chest were obtained. FINDINGS: Lungs clear. No pleural effusion. Heart and pulmonary vessels normal. Azygos lobe fissure incidentally seen. XR/XR chest 2V IMPRESSION: Unremarkable examination. Electronically signed by: Dwaine Mcwilliams MD 07/01/2024 12:41 PM EDT RP
[2024-07-01 08:41] VITALS: BP 129/61; PULSE 75; RESP 16; TEMP 36.7; O2SAT 99; BMI 31.8
--- NOTE | 2024-07-01 08:41 | ECG_ITS ---
Test Reason : chest pain Blood Pressure : / mmHG Vent. Rate : 073 BPM Atrial Rate : 073 BPM P-R Int : 142 ms QRS Dur : 090 ms QT Int : 386 ms P-R-T Axes : 000 027 016 degrees QTc Int : 425 ms Normal sinus rhythm Normal ECG When compared with ECG of 29-JUN-2024 04:44, No significant change was found Referred By: Generic ED Physician Electronically Signed By:PHUONG JENKINS
[2024-07-01 08:52] VITALS: BP 129/61; PULSE 69; RESP 12; TEMP 36.6; O2SAT 97
[2024-07-01 09:02] LABS: MANUAL DIFF FLAG NO
[2024-07-01 09:03] LABS: Basophils Percent Auto 0.3 % (0-2); Eosinophils Absolute Auto 0.1 X10*3/uL (0.0-0.4); Hematocrit 41.3 % (42.0-52.0); Hemoglobin 14.3 g/dl (14.0-18.0); Imm Gran Abs Auto 0.02 X10*3/uL (0.00-0.03); Imm Gran Pct Auto 0.3 % (0.0-0.4); Lymphocytes Absolute Auto 1.2 X10*3/uL (1.2-4.9); Lymphocytes Percent Auto 16.9 % (20-40); Mean Corpuscular HGB Conc 34.6 g/dl (31.0-36.0); Mean Corpuscular Volume 89.4 fL (80.0-98.0); Mean Platelet Volume 9.4 fL (9.4-12.4); Monocytes Absolute Auto 0.6 X10*3/uL (0.1-1.2); Monocytes Percent Auto 8.5 % (2-11); Neutrophils Absolute Auto 5.3 x10*3/uL (2.0-8.3); Platelet Count 280 X10*3/uL (160-400); Red Blood Count 4.62 X10*6/uL (4.60-5.80); Red Cell Distribution Width 11.7 % (11.0-16.0); White Blood Count 7.2 X10*3/uL (4.8-10.8)
[2024-07-01 09:27] LABS: Alanine Aminotransferase 13 U/L (0-40); Albumin Level 4.1 g/dL (3.5-5.0); Alkaline Phosphatase 84 U/L (39-117); Anion Gap 11 (12-20); Aspartate Amino Transferase 21 U/L (5-37); Bilirubin Total 0.9 mg/dL (0.0-1.0); Blood Urea Nitrogen 10 mg/dL (9-16); Calcium 9.1 mg/dL (8.4-10.2); Carbon Dioxide 27 mmol/L (22-29); Chloride 103 mmol/L (96-108); Estimated Glomerular Filt Rate > 60; Glucose Random 82 mg/dL (60-115); Potassium 3.8 mmol/L (3.3-5.1); Sodium 137 mmol/L (135-145); Total Protein 7.4 g/dL (6.5-8.0); Troponin-I High Sensitivity < 2.7 ng/L (<3.5-35.0)
--- NOTE | 2024-07-01 09:55 | ED.CHESTPAIN ---
HPI - Chest Pain General Chief Complaint: Chest Pain Stated Complaint: CP W/PALP FOR DAYS,FROM PCP OFFICE PER EMS Time Seen by Provider: 07/01/24 09:55 History of Present Illness ED Provider: Zoe AWAN narrative: The patient is a 33-year-old male who says that 3 days ago on Sunday night he had had some alcohol. Later that night he had upper abdominal and chest discomfort and he came to the emergency room. There was a long wait. He ultimately left without being seen by a provider. He felt better during the day on Sunday and Sunday but last night he had a recurrence of symptoms of chest pressure that he says radiated to the left arm. He returns to the emergency room today for evaluation again. No significant shortness of breath. Discomfort is not pleuritic. Related Data Previous Rx's ?Medication ?Instructions ?Recorded acetaminophen 500 mg tablet 1,000 mg (2 x 500 mg) PO QID PRN 12/07/21 (Tylenol Extra Strength) fever or pain #14 tabs cyclobenzaprine 10 mg tablet 10 mg PO Q8H PRN Muscle spasm #14 12/07/21 tabs oxycodone 5 mg tablet 5 mg PO Q6H PRN pain #14 tabs 12/07/21 acetaminophen 325 mg tablet 325 mg PO QID PRN pain #90 tabs 01/02/24 (Tylenol) doxycycline hyclate 100 mg capsule 100 mg PO BID Cellulitis #20 caps 01/02/24 ibuprofen 400 mg tablet 400 mg PO Q6H PRN Pain #60 tabs 01/02/24 morphine 15 mg immediate release 7.5 mg (1/2 x 15 mg) PO Q8H PRN 01/02/24 tablet pain #10 tabs chlorhexidine gluconate 0.12 % 15 ml buccal BID #118 mL 03/23/24 mouthwash (Peridex) naproxen 500 mg tablet 500 mg PO BID 7 days #14 tabs 03/23/24 penicillin V potassium 500 mg 500 mg PO BID 10 days #20 tabs 03/23/24 tablet omeprazole 40 mg capsule,delayed 40 mg PO DAILY #30 caps 07/01/24 release Allergies Allergy/AdvReac Type Severity Reaction Status Date / Time No Known Allergies Allergy Verified 07/01/24 08:44 Review of Systems Review of Systems: Yes all other systems are reviewed and are negative PMFSH Past Medical History Medical History No known health problems Social History Social History Alcohol intake: current Alcohol intake frequency: a few times a week Alcohol type: beer and wine Substance Use Type: Crack/Cocaine Advance Directives: No Advance Directives Information Provided: Yes Do you have a plan to hurt others: No Plan Physical Exam Vital Signs: Vital Signs: Last Vital Signs Temp 97.8 F 07/01/24 12:20 Pulse 66 07/01/24 12:20 Resp 16 07/01/24 12:20 BP 121/70 07/01/24 12:20 Pulse Ox 98 07/01/24 12:20 O2 Del Method Room Air 07/01/24 12:20 BMI result Body Mass Index 31.8 Const: General: cooperative, healthy appearing, comfortable and no acute distress Orientation/consciousness: patient oriented x3 HEENT: Head: Yes normal to inspection Mouth: Normal oral and palatal mucosa present and moist mucous membranes Eyes: General: appearance normal, both eyes and all related structures Neck: Neck: Yes full ROM and Yes no JVD Resp: Effort & Inspection: normal respiratory effort Auscultation: clear to auscultation bilaterally Cardio: Rate: regular rate Rhythm: regular rhythm Heart sounds: S1 normal heart sound present and S2 normal heart sound present GI: Other: Abdomen is soft and nontender. No right upper quadrant tenderness. Negative Goddard sign. Skin: General skin exam: no rashes or lesions noted Neuro: General: patient oriented x3 Cranial nerves: Yes CN's II-XII intact bilaterally Cognition (Neuro): normal cognition Gait exam (Neuro): Normal gait present Motor exam (neuro): 5/5 motor strength present throughout Extrem: Other: no calf swelling or tenderness, no asymmetry, no edema. Medications Administered Discontinued Medications Generic Name Dose Route Start Last Admin Trade Name Jose Robertoq PRN Reason Stop Dose Admin Al Hydroxide/Mg Hydroxide 30 ml 07/01/24 10:55 07/01/24 11:10 Magnesium Hydrox/Alum Hydrox 30 Ml Oral.Susp PO 07/01/24 10:56 30 ml ONCE ONE Administration Sucralfate 1 gm 07/01/24 10:02 07/01/24 10:14 Sucralfate Oral Suspension 1 Gm/10 Ml Oral.Susp PO 07/01/24 10:03 1 gm ONCE ONE Administration Medical Decision Making Medical Decision Making [facility] Narrative: Patient is a 33-year-old male does not seem to have significant risk factors for early coronary disease. He is a nonsmoker. He says he has used cocaine in the past but not recently and not frequently. He does not seem to have a family history of early coronary disease. His EKG is unremarkable and his troponins are negative. Other labs are unremarkable. exam does not suggest an atypical presentation of a biliary problem. His history is not suggestive of pulmonary embolism and he is PERC negative. His symptoms began after alcohol use. I think he probably has some degree of gastritis with reflux. He did not get much benefit from a dose of sucralfate but felt better after Maalox. He will be discharged with a prescription for omeprazole and should follow up with regular doctor. Lab Data 07/01/24 08:58 07/01/24 08:58 Labs: Lab Results 07/01/24 07/01/24 Range/Units 08:58 11:02 WBC 7.2 (4.8-10.8) X10*3/uL RBC 4.62 (4.60-5.80) X10*6/uL Hgb 14.3 (14.0-18.0) g/dl Hct 41.3 L (42.0-52.0) % MCV 89.4 (80.0-98.0) fL MCH 31.0 (27.0-33.0) pg MCHC 34.6 (31.0-36.0) g/dl RDW 11.7 (11.0-16.0) % Plt Count 280 (160-400) X10*3/uL MPV 9.4 (9.4-12.4) fL Immature Gran % (Auto) 0.3 (0.0-0.4) % Neut % (Auto) 73.0 (45-73) % Lymph % (Auto) 16.9 L (20-40) % Thayer % (Auto) 8.5 (2-11) % Eos % (Auto) 1.0 (0-4) % Baso % (Auto) 0.3 (0-2) % Lymph # (Auto) 1.2 (1.2-4.9) X10*3/uL Thayer # (Auto) 0.6 (0.1-1.2) X10*3/uL Eos # (Auto) 0.1 (0.0-0.4) X10*3/uL Baso # (Auto) 0.0 (0.0-0.2) X10*3/uL Abs Immat Gran (auto) 0.02 (0.00-0.03) X10*3/uL Absolute Neuts (auto) 5.3 (2.0-8.3) x10*3/uL Absolute Nucleated RBC 0.000 (0.0-0.012) X10*3/uL Nucleated RBC % (auto) 0.0 (0.0-0.2) /100WBC Sodium 137 (135-145) mmol/L Potassium 3.8 (3.3-5.1) mmol/L Chloride 103 (96-108) mmol/L Carbon Dioxide 27 (22-29) mmol/L Anion Gap 11 L (12-20) BUN 10 (9-16) mg/dL Creatinine 0.86 (0.5-1.4) mg/dL Estim Creat Clear Calc 134.0 Estimated GFR > 60 Random Glucose 82 (60-115) mg/dL Calcium 9.1 (8.4-10.2) mg/dL Total Bilirubin 0.9 (0.0-1.0) mg/dL AST 21 (5-37) U/L ALT 13 (0-40) U/L Alkaline Phosphatase 84 (39-117) U/L Troponin I High Sens < 2.7 < 2.7 (<3.5-35.0) ng/L Total Protein 7.4 (6.5-8.0) g/dL Albumin 4.1 (3.5-5.0) g/dL Independent Interpretation I performed an independent interpretation of an: EKG Interpretation: EKG at 08:41 shows normal sinus rhythm at 73 beats per minute. No acute changes. No change from previous. Discharge Plan Discharge Clinical Impression: Chest discomfort Patient Disposition: Home, Self-Care Instructions: Gastroesophageal Reflux Disease (ED) Additional Instructions: I suspect that your chest discomfort is probably from stomach acid refluxing into your esophagus. I would recommend taking omeprazole daily for at least a few weeks. I think this should help your symptoms. I would recommend avoiding alcohol for awhile until you are feeling significantly better. Alcohol can exacerbate stomach acid problems. Make a follow up appointment with your regular doctor to discuss these symptoms further. Return to the emergency room if you feel significantly worse. Prescriptions: New omeprazole 40 mg capsule,delayed release(DR/EC) 40 mg PO DAILY Qty: 30 0RF No Action acetaminophen [Tylenol Extra Strength] 500 mg tablet 1,000 mg PO QID PRN (Reason: fever or pain) Qty: 14 0RF cyclobenzaprine 10 mg tablet 10 mg PO Q8H PRN (Reason: Muscle spasm) Qty: 14 0RF oxycodone 5 mg tablet 5 mg PO Q6H PRN (Reason: pain) Qty: 14 0RF penicillin V potassium 500 mg tablet 500 mg PO BID 10 Days Qty: 20 0RF naproxen 500 mg tablet 500 mg PO BID 7 Days Qty: 14 0RF chlorhexidine gluconate [Peridex] 0.12 % mouthwash 15 ml buccal BID Qty: 118 0RF acetaminophen [Tylenol] 325 mg tablet 325 mg PO QID PRN (Reason: pain) Qty: 90 0RF doxycycline hyclate 100 mg capsule 100 mg PO BID Qty: 20 0RF ibuprofen 400 mg tablet 400 mg PO Q6H PRN (Reason: Pain) Qty: 60 0RF morphine 15 mg tablet 7.5 mg PO Q8H PRN (Reason: pain) Qty: 10 0RF Rx Instructions: Partial Fill upon patient request. Referrals: Cj Estevez MD [Primary Care Provider] - (GERD) Interventions: ED Discharge Assessment Last Done: 07/01/24 12:20 Discharge Date/Time: 07/01/24 12:30 Print Language: Uruguayan
[2024-07-01] MEDS: Sucralfate Oral Suspension 1 GM/10 ML ORAL.SUSP PO (10:14)
[2024-07-01 10:56] VITALS: BP 117/55; PULSE 64; RESP 10; O2SAT 97
[2024-07-01] MEDS: Magnesium Hydrox/Alum Hydrox 30 ML ORAL.SUSP PO (11:10)
[2024-07-01 11:37] LABS: Troponin-I High Sensitivity < 2.7 ng/L (<3.5-35.0)
[2024-07-01 12:20] VITALS: BP 121/70; PULSE 66; RESP 16; TEMP 36.6; O2SAT 98
== END 2024-07-01 12:30 | disposition home or self-care (01) ==
PROVIDERS: Emergency Provider Emergency Medicine; PCP Internal Medicine
DX: R07.89 Other chest pain (principal); R00.2 Palpitations; Z79.899 Other long term (current) drug therapy; F14.90 Cocaine use, unspecified, uncomplicated
CPT/HCPCS: 36415; 71046; 80053; 84484; 85025; 93005; 99283; 99285

== ENCOUNTER 2024-08-07 03:42 | Emergency (ER) | payer OTHER, SELFPAY ==
--- NOTE | ~2024-08-07 | XR_ITS ---
EXAMINATION: XR CHEST CLINICAL INFORMATION: Heart racing COMPARISON: Chest radiograph 07/01/2024. TECHNIQUE: Frontal view of the chest was obtained. FINDINGS: Normal appearance of the cardiomediastinal structures. Pleura and azygos lobe fissure is noted. Normal pattern of pulmonary vasculature. No focal pulmonary consolidation. XR/XR chest 1V IMPRESSION: Normal chest. Electronically signed by: Fred Wallace MD 08/07/2024 04:53 AM EDT
[2024-08-07 03:48] VITALS: BP 114/64; PULSE 75; RESP 16; TEMP 36.9; O2SAT 96; BMI 32.3
--- NOTE | 2024-08-07 03:53 | ECG_ITS ---
Test Reason : CHEST PX Blood Pressure : / mmHG Vent. Rate : 074 BPM Atrial Rate : 074 BPM P-R Int : 148 ms QRS Dur : 094 ms QT Int : 396 ms P-R-T Axes : 000 050 010 degrees QTc Int : 439 ms Normal sinus rhythm Normal ECG When compared with ECG of 01-JUL-2024 08:41, No significant change was found Referred By: Generic ED Physician Electronically Signed By:EMERSON GRIFFIN
[2024-08-07 04:05] LABS: MANUAL DIFF FLAG NO
[2024-08-07 04:06] LABS: Basophils Percent Auto 0.4 % (0-2); Eosinophils Absolute Auto 0.1 X10*3/uL (0.0-0.4); Eosinophils Percent Auto 1.6 % (0-4); Hematocrit 40.1 % (42.0-52.0); Imm Gran Abs Auto 0.01 X10*3/uL (0.00-0.03); Imm Gran Pct Auto 0.1 % (0.0-0.4); Lymphocytes Absolute Auto 1.9 X10*3/uL (1.2-4.9); Lymphocytes Percent Auto 27.8 % (20-40); Mean Corpuscular HGB Conc 34.9 g/dl (31.0-36.0); Mean Corpuscular Hemoglobin 31.3 pg (27.0-33.0); Mean Corpuscular Volume 89.7 fL (80.0-98.0); Mean Platelet Volume 9.7 fL (9.4-12.4); Monocytes Absolute Auto 0.8 X10*3/uL (0.1-1.2); Monocytes Percent Auto 12.3 % (2-11); Neutrophils Absolute Auto 3.9 x10*3/uL (2.0-8.3); Neutrophils Percent Auto 57.8 % (45-73); Platelet Count 313 X10*3/uL (160-400); Red Blood Count 4.47 X10*6/uL (4.60-5.80); Red Cell Distribution Width 12.3 % (11.0-16.0); White Blood Count 6.7 X10*3/uL (4.8-10.8)
[2024-08-07 04:31] LABS: Anion Gap 16 (12-20); Blood Urea Nitrogen 25 mg/dL (9-16); Carbon Dioxide 23 mmol/L (22-29); Chloride 109 mmol/L (96-108); Estimated Glomerular Filt Rate > 60; Glucose Random 116 mg/dL (60-115); Potassium 3.6 mmol/L (3.3-5.1); Sodium 144 mmol/L (135-145); Troponin-I High Sensitivity < 2.7 ng/L (<3.5-35.0)
[2024-08-07 06:00] VITALS: BP 112/65; PULSE 61; RESP 15; O2SAT 96
--- NOTE | 2024-08-07 06:49 | ED_ITS ---
HPI - Chest Pain General Chief Complaint: Chest Pain Stated Complaint: Heart Palpitations Time Seen by Provider: 08/07/24 06:35 Source: patient Mode of arrival: ambulatory Limitations: no limitations History of Present Illness ED Provider: Tammy Espinoza PA-C HPI narrative: Patient is a 34 year old assigned male at with no reported medical history presenting to the emergency department today with palpitations and chest pain. Patient states that he woke up at 0300 with palpitations and chest pain. Patient states that his symptoms have resolved at this time. Patient denies any current dizziness, lightheadedness, abdominal pain, nausea, vomiting, fever, chills, blurry vision, double vision, loss of vision, chest pain, difficulty breathing, shortness of breath, back pain, night sweats, pain with urination, increased urinary frequency, increased urinary urgency, blood in his urine or stool, syncope or a near syncopal episode, recent trauma or falls, bowel incontinence, bladder incontinence, or any other complaints at this time. Pain radiation: none Relieving factors: nothing Exacerbating factors: nothing Related Data Previous Rx's ?Medication ?Instructions ?Recorded acetaminophen 500 mg tablet 1,000 mg (2 x 500 mg) PO QID PRN 12/07/21 (Tylenol Extra Strength) fever or pain #14 tabs cyclobenzaprine 10 mg tablet 10 mg PO Q8H PRN Muscle spasm #14 12/07/21 tabs oxycodone 5 mg tablet 5 mg PO Q6H PRN pain #14 tabs 12/07/21 acetaminophen 325 mg tablet 325 mg PO QID PRN pain #90 tabs 01/02/24 (Tylenol) doxycycline hyclate 100 mg capsule 100 mg PO BID Cellulitis #20 caps 01/02/24 ibuprofen 400 mg tablet 400 mg PO Q6H PRN Pain #60 tabs 01/02/24 morphine 15 mg immediate release 7.5 mg (1/2 x 15 mg) PO Q8H PRN 01/02/24 tablet pain #10 tabs chlorhexidine gluconate 0.12 % 15 ml buccal BID #118 mL 03/23/24 mouthwash (Peridex) naproxen 500 mg tablet 500 mg PO BID 7 days #14 tabs 03/23/24 penicillin V potassium 500 mg 500 mg PO BID 10 days #20 tabs 03/23/24 tablet omeprazole 40 mg capsule,delayed 40 mg PO DAILY #30 caps 07/01/24 release Allergies Allergy/AdvReac Type Severity Reaction Status Date / Time No Known Allergies Allergy Verified 08/07/24 03:50 Review of Systems 2 Constitutional: Constitutional: Reports no additional constitutional complaints, Denies chills, Denies fever(s) and Denies night sweats Eyes: Eyes: Reports no additional eye complaints, Denies blurry vision, Denies change in vision, Denies diplopia, Denies eye discharge, Denies loss of vision and Denies eye pain ENT: Denies dizziness Cardiovascular: Cardiovascular: Reports no additional cardiovascular complaints, Reports chest pain (now resolved), Denies lightheadedness, Denies Loss of Consciousness, Reports palpitations (now resolved) and Denies dyspnea Respiratory: Respiratory: Reports no additional respiratory complaints and Denies dyspnea Gastrointestinal: Gastrointestinal: Reports no additional gastrointestinal complaints, Denies abdominal pain, Denies melena, Denies hematochezia, Denies change in bowel habits and Denies change in stool character Genitourinary: Genitourinary: Reports no additional male genitourinary complaints, Denies hematuria, Denies oliguria, Denies difficulty urinating, Denies dysuria, Denies urinary frequency, Denies urinary hesitancy, Denies urinary incontinence and Denies urinary urgency Musculoskeletal: Musculoskeletal: Reports no additional musculoskeletal complaints, Denies numbness and Denies tingling Neurologic: Denies dizziness, Denies loss of vision, Denies numbness and Denies tingling Psychiatric: Psychiatric: Reports no additional psychiatric complaints Endocrine: Endocrine: Reports no additional endocrine complaints and Reports palpitations (now resolved) Hematologic/Lymphatic: Hematologic/Lymphatic: Reports no additional hematologic/lymphatic complaints Allergic/Immunologic: Allergic/Immunologic: Reports no additional allergic/immunologic complaints [facility] Past Medical History Attestation statement: The following information was validated with the patient. Source: old records reviewed and nursing notes reviewed Medical History No known health problems Social History Social History Alcohol intake: current Alcohol intake frequency: a few times a month Alcohol type: beer and wine Smoked in Last 30 Days: No Use of substances other than those prescribed or required for medical reasons: No Substance Use Type: Crack/Cocaine Advance Directives: No Do you have a plan to hurt others: No Plan Physical Exam 2 Vital Signs: Vital Signs: Last Vital Signs Temp 98.3 F 08/07/24 07:05 Pulse 65 08/07/24 07:05 Resp 15 08/07/24 07:05 BP 108/54 L 08/07/24 07:05 Pulse Ox 97 08/07/24 07:05 O2 Del Method Room Air 08/07/24 07:05 BMI result Body Mass Index 32.3 Const: General: cooperative, no acute distress, alert and awake Nutritional Appearance: well nourished Orientation/consciousness: patient oriented x3 Limitations: no limitations HEENT: Head: Yes normal to inspection and Yes atraumatic Ears: hearing grossly normal bilaterally and external ears normal General nose exam: Normal external nose present, no nasal discharge noted and no epistaxis Face and sinus: Yes normal facial exam, No abrasion and No laceration Mouth: Normal oral and palatal mucosa present, no drooling and no muffled voice Eyes: General: appearance normal, both eyes and all related structures P eriorbital: periorbital findings normal Eyelids: Yes eyelids normal C onjunctivae: conjunctivae normal Pupils: Equal, round and reactive pupils present EOM: EOMs intact bilaterally Neck: Neck: Yes normal visual inspection, Yes full ROM and Yes no lymphadenopathy Chest: Chest palpation & inspection: normal inspection of the chest Resp: Effort & Inspection: normal respiratory effort and able to speak in complete sentences GI: Inspection: Yes normal to inspection Neuro: General: patient oriented x3 and moves all extremities Cranial nerves: Yes Equal, round and reactive pupils present Cognition (Neuro): n ormal cognition Extrem: General: Yes normal to inspection, Yes full ROM and Yes capillary refill normal Psych: Appearance: grossly normal Mental Status: mental status grossly normal Affect: normal affect Attitude: cooperative Thought process: N ormal thought process present Thought content: Normal thought content present Insight: Good insight present (Psych) Medical Decision Making Medical Decision Making MDM Narrative: Patient is a 34 year old assigned male at with no reported medical history presenting to the emergency department today with chest pain and a rapid heart rate. Patient's physical exam was unremarkable. Patient's blood work was unremarkable. Patient's EKG was unremarkable. Patient's chest x-ray showed no acute process. I explained my physical exam findings as well as all test results to the patient. I answered all questions asked by the patient. I stressed the importance of the patient taking his medication as directed (either prescribed or as the over the counter packaging recommends). I stressed the importance of the patient following up with his primary care provider. I stressed the importance of the patient returning to the emergency department immediately if his symptoms were to worsen or if he were to develop any dizziness, shortness of breath, difficulty breathing, chest pain, blurry vision, loss of vision, nausea, vomiting, abdominal pain, fever, chills, back pain, or any other complaints. Patient verbalized agreement and understanding with this treatment plan and discharge. Differential Diagnosis Differential Diagnoses: The differential diagnosis associated with the presentation includes Palpitations Atypical chest pain Admission/Observation Consideration of admission/observation: Escalation of care including admission/observation considered Patient would have been admitted to the hospital had his work up had any findings where hospital admission was appropriate and his clinical presentation warranted hospital admission. Lab Data [facility] Lab Attestation statement: I reviewed the patient's lab results. My interpretation of these results are in the [facility] Rationale portion of this note. 08/07/24 04:01 08/07/24 04:01 Labs: Lab Results 08/07/24 Range/Units 04:01 WBC 6.7 (4.8-10.8) X10*3/uL RBC 4.47 L (4.60-5.80) X10*6/uL Hgb 14.0 (14.0-18.0) g/dl Hct 40.1 L (42.0-52.0) % MCV 89.7 (80.0-98.0) fL MCH 31.3 (27.0-33.0) pg MCHC 34.9 (31.0-36.0) g/dl RDW 12.3 (11.0-16.0) % Plt Count 313 (160-400) X10*3/uL MPV 9.7 (9.4-12.4) fL Immature Gran % (Auto) 0.1 (0.0-0.4) % Neut % (Auto) 57.8 (45-73) % Lymph % (Auto) 27.8 (20-40) % [place] % (Auto) 12.3 H (2-11) % Eos % (Auto) 1.6 (0-4) % Baso % (Auto) 0.4 (0-2) % Lymph # (Auto) 1.9 (1.2-4.9) X10*3/uL [place] # (Auto) 0.8 (0.1-1.2) X10*3/uL Eos # (Auto) 0.1 (0.0-0.4) X10*3/uL Baso # (Auto) 0.0 (0.0-0.2) X10*3/uL Abs Immat Gran (auto) 0.01 (0.00-0.03) X10*3/uL Absolute Neuts (auto) 3.9 (2.0-8.3) x10*3/uL Absolute Nucleated RBC 0.000 (0.0-0.012) X10*3/uL Nucleated RBC % (auto) 0.0 (0.0-0.2) /100WBC Sodium 144 (135-145) mmol/L Potassium 3.6 (3.3-5.1) mmol/L Chloride 109 H (96-108) mmol/L Carbon Dioxide 23 (22-29) mmol/L Anion Gap 16 (12-20) BUN 25 H (9-16) mg/dL Creatinine 0.95 (0.5-1.4) mg/dL Estim Creat Clear Calc 121.0 Estimated GFR > 60 Random Glucose 116 H (60-115) mg/dL Calcium 9.0 (8.4-10.2) mg/dL Troponin I High Sens < 2.7 (<3.5-35.0) ng/L Independent Interpretation I performed an independent interpretation of an: Plain X-Ray Interpretation: My interpretation is in agreement with the radiologist's impression of this imaging study. L EXAMINATION: XR CHEST CLINICAL INFORMATION: Heart racing COMPARISON: Chest radiograph 07/01/2024. TECHNIQUE: Frontal view of the chest was obtained. FINDINGS: Normal appearance of the cardiomediastinal structures. Pleura and azygos lobe fissure is noted. Normal pattern of pulmonary vasculature. No focal pulmonary consolidation. XR/XR chest 1V IMPRESSION: Normal chest. Electronically signed by: Fred Wallace MD 08/07/2024 04:53 AM EDT Dictated By: Fred Wallace MD Signed By: Electronically signed by Fred Wallace MD 08/07/24 0453 Vent. Rate: 074 BPM Atrial Rate: 074 BPM P-R Int: 148 ms QRS Dur: 094 ms QT Int: 396 ms P-R-T Axes: 000 050 010 degrees QTc Int: 439 ms Normal sinus rhythm Normal ECG When compared with ECG of 01-JUL-2024 08:41, No significant change was found DD/ 0342 Radiology Impression Discussion of test interpretation with radiology: I have reviewed the radiologist's reading. Discharge Plan Discharge Clinical Impression: Atypical chest pain, Heart palpitations Patient Disposition: Home, Self-Care Instructions: Chest Pain (ED), Heart Palpitations (DC) Additional Instructions: Follow up with your primary care provider. Return to the emergency department immediately if your symptoms worsen or if you develop any dizziness, shortness of breath, difficulty breathing, chest pain, blurry vision, loss of vision, nausea, vomiting, abdominal pain, fever, chills, back pain, or any other complaints. Prescriptions: No Action acetaminophen [Tylenol Extra Strength] 500 mg tablet 1,000 mg PO QID PRN (Reason: fever or pain) Qty: 14 0RF cyclobenzaprine 10 mg tablet 10 mg PO Q8H PRN (Reason: Muscle spasm) Qty: 14 0RF oxycodone 5 mg tablet 5 mg PO Q6H PRN (Reason: pain) Qty: 14 0RF penicillin V potassium 500 mg tablet 500 mg PO BID 10 Days Qty: 20 0RF naproxen 500 mg tablet 500 mg PO BID 7 Days Qty: 14 0RF chlorhexidine gluconate [Peridex] 0.12 % mouthwash 15 ml buccal BID Qty: 118 0RF acetaminophen [Tylenol] 325 mg tablet 325 mg PO QID PRN (Reason: pain) Qty: 90 0RF doxycycline hyclate 100 mg capsule 100 mg PO BID Qty: 20 0RF ibuprofen 400 mg tablet 400 mg PO Q6H PRN (Reason: Pain) Qty: 60 0RF morphine 15 mg tablet 7.5 mg PO Q8H PRN (Reason: pain) Qty: 10 0RF Rx Instructions: Partial Fill upon patient request. omeprazole 40 mg capsule,delayed release(DR/EC) 40 mg PO DAILY Qty: 30 0RF Referrals: Cj Estevez MD [Primary Care Provider] - Interventions: ED Discharge Assessment Last Done: 08/07/24 07:05 Discharge Date/Time: 08/07/24 07:05 Print Language: Tristanian
[2024-08-07 07:04] VITALS: BP 108/54; PULSE 65; RESP 15; TEMP 36.8; O2SAT 97
[2024-08-07 07:05] VITALS: BP 108/54; PULSE 65; RESP 15; TEMP 36.8; O2SAT 97
== END 2024-08-07 07:05 | disposition home or self-care (01) ==
PROVIDERS: Emergency Provider Emergency Medicine; PCP Internal Medicine
DX: R07.9 Chest pain, unspecified (principal); R00.2 Palpitations
CPT/HCPCS: 36415; 71045; 80048; 84484; 85025; 93005; 99283; 99285

== ENCOUNTER → 2024-08-07 03:53 | Outpatient (BNV) | payer OTHER, SELFPAY | PROVIDERS: Emergency Provider Emergency Medicine; PCP Internal Medicine; Visit Provider Internal Medicine | DX: R07.9 Chest pain, unspecified (principal) | CPT/HCPCS: 93010 ==

== ENCOUNTER 2024-08-08 08:54 | Emergency (ER) | payer OTHER, SELFPAY ==
--- NOTE | 2024-08-08 | ECG_ITS ---
Test Reason : cp Blood Pressure : / mmHG Vent. Rate : 058 BPM Atrial Rate : 058 BPM P-R Int : 154 ms QRS Dur : 100 ms QT Int : 406 ms P-R-T Axes : 063 034 010 degrees QTc Int : 398 ms Sinus bradycardia with sinus arrhythmia Otherwise normal ECG When compared with ECG of 07-AUG-2024 03:42, No significant change was found Referred By: Generic ED Physician Electronically Signed By:EMERSON GRIFFIN
[2024-08-08 09:09] VITALS: BP 104/71; PULSE 64; RESP 16; TEMP 36.6; O2SAT 98; BMI 31.2
[2024-08-08 09:12] LABS: MANUAL DIFF FLAG NO
[2024-08-08 09:15] LABS: Basophils Percent Auto 0.7 % (0-2); Eosinophils Absolute Auto 0.1 X10*3/uL (0.0-0.4); Eosinophils Percent Auto 1.7 % (0-4); Hematocrit 40.3 % (42.0-52.0); Imm Gran Abs Auto 0.01 X10*3/uL (0.00-0.03); Imm Gran Pct Auto 0.2 % (0.0-0.4); Lymphocytes Absolute Auto 1.3 X10*3/uL (1.2-4.9); Lymphocytes Percent Auto 27.7 % (20-40); Mean Corpuscular HGB Conc 34.7 g/dl (31.0-36.0); Mean Corpuscular Hemoglobin 31.3 pg (27.0-33.0); Mean Corpuscular Volume 90.2 fL (80.0-98.0); Mean Platelet Volume 9.6 fL (9.4-12.4); Monocytes Absolute Auto 0.6 X10*3/uL (0.1-1.2); Monocytes Percent Auto 12.7 % (2-11); Neutrophils Absolute Auto 2.6 x10*3/uL (2.0-8.3); Platelet Count 287 X10*3/uL (160-400); Red Blood Count 4.47 X10*6/uL (4.60-5.80); Red Cell Distribution Width 12.5 % (11.0-16.0); White Blood Count 4.6 X10*3/uL (4.8-10.8)
[2024-08-08 09:23] LABS: Prothrombin Time 11.7 SEC (10.9-12.4)
[2024-08-08 09:35] LABS: Alanine Aminotransferase 19 U/L (0-40); Albumin Level 4.2 g/dL (3.5-5.0); Alkaline Phosphatase 74 U/L (39-117); Anion Gap 11 (12-20); Aspartate Amino Transferase 26 U/L (5-37); Bilirubin Total 0.8 mg/dL (0.0-1.0); Blood Urea Nitrogen 15 mg/dL (9-16); Calcium 9.7 mg/dL (8.4-10.2); Carbon Dioxide 27 mmol/L (22-29); Chloride 107 mmol/L (96-108); Creatinine Clr Calc Pharmacy 131.4; Estimated Glomerular Filt Rate > 60; Glucose Random 102 mg/dL (60-115); Magnesium 2.2 mg/dL (1.6-2.6); Potassium 3.9 mmol/L (3.3-5.1); Sodium 141 mmol/L (135-145); Total Protein 7.3 g/dL (6.5-8.0)
[2024-08-08 09:46] LABS: Troponin-I High Sensitivity < 2.7 ng/L (<3.5-35.0)
--- NOTE | 2024-08-08 10:27 | ED.CHESTPAIN ---
HPI - Chest Pain General Chief Complaint: Chest Pain Stated Complaint: CP Time Seen by Provider: 08/08/24 09:39 Source: patient, RN notes reviewed and old records reviewed Mode of arrival: ambulatory History of Present Illness ED Provider: Duyen Brown PA-C [facility] narrative: 34-year-old male with no significant past medical history presenting to the ED complaining of substernal sharp chest pain with associated palpitations worsening since 03:00. Reports intermittent symptoms over the past few weeks. Was evaluated in our ED last night, discharged this morning for similar symptoms, workup was unremarkable at that time. Denies SOB, nausea/vomiting, pedal edema, travel, sick contacts, illicit substance use or EtOH Related Data Previous Rx's ?Medication ?Instructions ?Recorded acetaminophen 500 mg tablet 1,000 mg (2 x 500 mg) PO QID PRN 12/07/21 (Tylenol Extra Strength) fever or pain #14 tabs cyclobenzaprine 10 mg tablet 10 mg PO Q8H PRN Muscle spasm #14 12/07/21 tabs oxycodone 5 mg tablet 5 mg PO Q6H PRN pain #14 tabs 12/07/21 acetaminophen 325 mg tablet 325 mg PO QID PRN pain #90 tabs 01/02/24 (Tylenol) doxycycline hyclate 100 mg capsule 100 mg PO BID Cellulitis #20 caps 01/02/24 ibuprofen 400 mg tablet 400 mg PO Q6H PRN Pain #60 tabs 01/02/24 morphine 15 mg immediate release 7.5 mg (1/2 x 15 mg) PO Q8H PRN 01/02/24 tablet pain #10 tabs chlorhexidine gluconate 0.12 % 15 ml buccal BID #118 mL 03/23/24 mouthwash (Peridex) naproxen 500 mg tablet 500 mg PO BID 7 days #14 tabs 03/23/24 penicillin V potassium 500 mg 500 mg PO BID 10 days #20 tabs 03/23/24 tablet omeprazole 40 mg capsule,delayed 40 mg PO DAILY #30 caps 07/01/24 release Allergies Allergy/AdvReac Type Severity Reaction Status Date / Time No Known Allergies Allergy Verified 08/08/24 09:10 Review of Systems Review of Systems: Yes all other systems are reviewed and are negative Constitutional: Constitutional: Reports as per [facility] Past Medical History Attestation statement: The following information was validated with the patient. Source: old records reviewed Medical History No known health problems Social History Social History Alcohol intake: current Alcohol intake frequency: a few times a month Alcohol type: beer and wine Substance Use Type: Crack/Cocaine Advance Directives: No Advance Directives Information Provided: Yes Do you have a plan to hurt others: No Plan Physical Exam Vital Signs: Vital Signs: Last Vital Signs Temp 98.1 F 08/08/24 11:45 Pulse 61 08/08/24 11:45 Resp 18 08/08/24 11:45 BP 112/41 L 08/08/24 11:45 Pulse Ox 99 08/08/24 11:45 O2 Del Method Room Air 08/08/24 11:45 BMI result Body Mass Index 31.2 Const: General: cooperative, healthy appearing and no acute distress Orientation/consciousness: patient oriented x3 Limitations: no limitations HEENT: Head: Yes normal to inspection and Yes atraumatic Ears: hearing grossly normal bilaterally General nose exam: Normal external nose present Face and sinus: Yes normal facial exam Eyes: General: appearance normal, both eyes and all related structures EOM: EOMs intact bilaterally Neck: Neck: Yes normal visual inspection and Yes no meningeal signs Chest: Chest palpation & inspection: normal inspection of the chest Resp: Effort & Inspection: normal respiratory effort and no respiratory distress Auscultation: clear to auscultation bilaterally, no crackles, no rales, no rhonchi and no wheezes Cardio: Rate: regular rate Heart sounds: S1 normal heart sound present and S2 normal heart sound present GI: Inspection: Yes normal to inspection Palpation (GI): Soft to palpation, nontender, no guarding and not rigid Skin: Rashes: no rashes Wounds: no wounds Neuro: General: patient oriented x3, tone normal and no meningeal signs Cranial nerves: Yes CN's II-XII intact bilaterally Gait exam (Neuro): Normal gait present Extrem: General: Yes normal to inspection, Yes no pedal edema and Yes no calf tenderness Course Course Course Narrative: -1135--blood work unremarkable including negative troponin Results discussed with patient including worrisome signs and symptoms and strict return precautions, and when to return to the emergency department. They verbalized understanding and feel safe for discharge at this time. Medical Decision Making Medical Decision Making [facility] Narrative: 34-year-old male with no significant past medical history presenting to the ED complaining of substernal sharp chest pain with associated palpitations worsening since 03:00. On exam vital signs stable, NAD, nontoxic appearing, lungs CTA, abdomen soft/nontender, no pedal edema. Concern for atypical ACS vs anxiety. Low suspicion for pneumonia, viral illness, PE, pneumothorax, acute ACS Workup reviewed from yesterday and was unremarkable Plan: Repeat labs/EKG Please refer to course for remaining clinical decision making, interpretation of labs/imaging results, and discussions with consultants and/or family members. Differential Diagnosis Differential Diagnoses: The differential diagnosis associated with the presentation includes As above Admission/Observation Consideration of admission/observation: Escalation of care including admission/observation considered Lab Data [facility] Lab Attestation statement: I reviewed the patient's lab results. 08/08/24 09:09 08/08/24 09:09 Labs: Lab Results 08/08/24 Range/Units 09:09 WBC 4.6 L (4.8-10.8) X10*3/uL RBC 4.47 L (4.60-5.80) X10*6/uL Hgb 14.0 (14.0-18.0) g/dl Hct 40.3 L (42.0-52.0) % MCV 90.2 (80.0-98.0) fL MCH 31.3 (27.0-33.0) pg MCHC 34.7 (31.0-36.0) g/dl RDW 12.5 (11.0-16.0) % Plt Count 287 (160-400) X10*3/uL MPV 9.6 (9.4-12.4) fL Immature Gran % (Auto) 0.2 (0.0-0.4) % Neut % (Auto) 57.0 (45-73) % Lymph % (Auto) 27.7 (20-40) % [place] % (Auto) 12.7 H (2-11) % Eos % (Auto) 1.7 (0-4) % Baso % (Auto) 0.7 (0-2) % Lymph # (Auto) 1.3 (1.2-4.9) X10*3/uL [place] # (Auto) 0.6 (0.1-1.2) X10*3/uL Eos # (Auto) 0.1 (0.0-0.4) X10*3/uL Baso # (Auto) 0.0 (0.0-0.2) X10*3/uL Abs Immat Gran (auto) 0.01 (0.00-0.03) X10*3/uL Absolute Neuts (auto) 2.6 (2.0-8.3) x10*3/uL Absolute Nucleated RBC 0.000 (0.0-0.012) X10*3/uL Nucleated RBC % (auto) 0.0 (0.0-0.2) /100WBC PT 11.7 (10.9-12.4) SEC INR 1.0 (0.9-1.1) Sodium 141 (135-145) mmol/L Potassium 3.9 (3.3-5.1) mmol/L Chloride 107 (96-108) mmol/L Carbon Dioxide 27 (22-29) mmol/L Anion Gap 11 L (12-20) BUN 15 (9-16) mg/dL Creatinine 0.86 (0.5-1.4) mg/dL Estim Creat Clear Calc 131.4 Estimated GFR > 60 Random Glucose 102 (60-115) mg/dL Calcium 9.7 D (8.4-10.2) mg/dL Magnesium 2.2 (1.6-2.6) mg/dL Total Bilirubin 0.8 (0.0-1.0) mg/dL AST 26 (5-37) U/L ALT 19 (0-40) U/L Alkaline Phosphatase 74 (39-117) U/L Troponin I High Sens < 2.7 (<3.5-35.0) ng/L Total Protein 7.3 (6.5-8.0) g/dL Albumin 4.2 (3.5-5.0) g/dL TSH 1.12 (0.32-4.0) uIU/mL Independent Interpretation I performed an independent interpretation of an: EKG (My interpretation EKG sinus bradycardia with sinus arrhythmia rate of 58. QTC 398. No significant change when compared to prior) Radiology Impression Discussion of test interpretation with radiology: I have reviewed the radiologist's reading. External Record Review External record reviewed: Inpatient record, Office record, Outpatient record, Prior outpatient labs, Prior outpatient radiology, Primary care record and Outside ED record Tests considered The following testing was considered but not selected: As above Chronic Conditions Patient?s care impacted by: Other Social Determinants Patient?s care significantly limited by Social Determinants of Health including: Inadequate housing, Low income, Alcoholism and drug addiction in family, Problems related to primary support group, Unemployment, Problems related to employment and Other Social Determinant of Health Discharge Plan Discharge Clinical Impression: Atypical chest pain Patient Disposition: Home, Self-Care Instructions: Noncardiac Chest Pain (ED) Additional Instructions: Your blood work is reassuring Please have close follow-up with your doctor as well as Cardiology Call to make an appointment If symptoms persist or worsen or pain becomes unbearable return to the ED Avoid any drug or alcohol use Prescriptions: No Action acetaminophen [Tylenol Extra Strength] 500 mg tablet 1,000 mg PO QID PRN (Reason: fever or pain) Qty: 14 0RF cyclobenzaprine 10 mg tablet 10 mg PO Q8H PRN (Reason: Muscle spasm) Qty: 14 0RF oxycodone 5 mg tablet 5 mg PO Q6H PRN (Reason: pain) Qty: 14 0RF penicillin V potassium 500 mg tablet 500 mg PO BID 10 Days Qty: 20 0RF naproxen 500 mg tablet 500 mg PO BID 7 Days Qty: 14 0RF chlorhexidine gluconate [Peridex] 0.12 % mouthwash 15 ml buccal BID Qty: 118 0RF acetaminophen [Tylenol] 325 mg tablet 325 mg PO QID PRN (Reason: pain) Qty: 90 0RF doxycycline hyclate 100 mg capsule 100 mg PO BID Qty: 20 0RF ibuprofen 400 mg tablet 400 mg PO Q6H PRN (Reason: Pain) Qty: 60 0RF morphine 15 mg tablet 7.5 mg PO Q8H PRN (Reason: pain) Qty: 10 0RF Rx Instructions: Partial Fill upon patient request. omeprazole 40 mg capsule,delayed release(DR/EC) 40 mg PO DAILY Qty: 30 0RF Referrals: [facility] [Provider Group] Cj Estevez MD [Primary Care Provider] - Interventions: ED Discharge Assessment Last Done: 08/08/24 11:45 Discharge Date/Time: 08/08/24 11:46 Print Language: Guamanian
[2024-08-08 11:17] LABS: TSH reflex Free T4 1.12 uIU/mL (0.32-4.0)
[2024-08-08 11:45] VITALS: BP 112/41; PULSE 61; RESP 18; TEMP 36.7; O2SAT 99
== END 2024-08-08 11:46 | disposition home or self-care (01) ==
PROVIDERS: Physician Assistant; Emergency Provider Emergency Medicine Emergency Medical Services; PCP Internal Medicine
DX: R07.89 Other chest pain (principal); R00.2 Palpitations; Z79.899 Other long term (current) drug therapy
CPT/HCPCS: 36415; 80053; 83735; 84443; 84484; 85025; 85610; 93005; 99283

== ENCOUNTER → 2024-08-08 08:56 | Outpatient (BNV) | payer OTHER, SELFPAY | PROVIDERS: Emergency Provider Emergency Medicine Emergency Medical Services; PCP Internal Medicine; Visit Provider Internal Medicine | DX: I49.9 Cardiac arrhythmia, unspecified (principal) | CPT/HCPCS: 93010 ==

== ENCOUNTER 2024-09-06 11:54 | Emergency (ER) | payer OTHER, SELFPAY ==
--- NOTE | ~2024-09-06 | XR_ITS ---
EXAMINATION: XR CHEST CLINICAL INFORMATION: Chest tightness. Shortness of breath. COMPARISON: Most recent chest radiograph dated 08/07/2024. TECHNIQUE: 2 views of the chest were obtained. FINDINGS: The lungs are clear. The cardiomediastinal silhouette is normal in size. There is no pleural effusion or pneumothorax. No acute osseous abnormality. XR/XR chest 2V IMPRESSION: No acute cardiopulmonary findings. Electronically signed by: Arash Lazo MD 09/06/2024 01:26 PM [facility]
--- NOTE | 2024-09-06 11:55 | ECG_ITS ---
Test Reason : CHEST TIGHTNESS Blood Pressure : / mmHG Vent. Rate : 056 BPM Atrial Rate : 056 BPM P-R Int : 162 ms QRS Dur : 094 ms QT Int : 398 ms P-R-T Axes : 053 027 024 degrees QTc Int : 384 ms Sinus bradycardia with sinus arrhythmia Otherwise normal ECG When compared with ECG of 08-AUG-2024 08:56, No significant change was found Referred By: Shasta Guallpa Electronically Signed By:EMERSON GRIFFIN
[2024-09-06 12:02] VITALS: BP 122/51; PULSE 59; RESP 20; TEMP 36.8; O2SAT 98; BMI 31.3
--- NOTE | 2024-09-06 12:05 | ED.CHESTPAIN ---
HPI - Chest Pain General Chief Complaint: Chest Pain Stated Complaint: sob, chest tightness Time Seen by Provider: 09/06/24 12:17 Source: patient and old records reviewed Mode of arrival: ambulatory Limitations: no limitations History of Present Illness ED Provider: OLULOU AWAN narrative: 34 yo male with PMH of GERD just started omeprazole 3 days ago here with c/o 3 days of intermittent chest tightness and dyspnea worse with eating. No fevers, cough, n/v. No recent travel or procedures. He notes eating makes it work for him MD complaint: chest heaviness Onset (ago): day(s) (3) Timing of current episode: episodic Prior episodes: Yes Onset: during rest Pain location: left chest and right chest Pain radiation: none Severity: mild Quality: tightness Relieving factors: nothing Exacerbating factors: eating Context: new medications Associated symptoms: dyspnea Treatment prior to arrival: none Related Data Previous Rx's ?Medication ?Instructions ?Recorded acetaminophen 500 mg tablet 1,000 mg (2 x 500 mg) PO QID PRN 12/07/21 (Tylenol Extra Strength) fever or pain #14 tabs cyclobenzaprine 10 mg tablet 10 mg PO Q8H PRN Muscle spasm #14 12/07/21 tabs oxycodone 5 mg tablet 5 mg PO Q6H PRN pain #14 tabs 12/07/21 acetaminophen 325 mg tablet 325 mg PO QID PRN pain #90 tabs 01/02/24 (Tylenol) doxycycline hyclate 100 mg capsule 100 mg PO BID Cellulitis #20 caps 01/02/24 ibuprofen 400 mg tablet 400 mg PO Q6H PRN Pain #60 tabs 01/02/24 morphine 15 mg immediate release 7.5 mg (1/2 x 15 mg) PO Q8H PRN 01/02/24 tablet pain #10 tabs chlorhexidine gluconate 0.12 % 15 ml buccal BID #118 mL 03/23/24 mouthwash (Peridex) naproxen 500 mg tablet 500 mg PO BID 7 days #14 tabs 03/23/24 penicillin V potassium 500 mg 500 mg PO BID 10 days #20 tabs 03/23/24 tablet omeprazole 40 mg capsule,delayed 40 mg PO DAILY #30 caps 07/01/24 release Allergies Allergy/AdvReac Type Severity Reaction Status Date / Time No Known Allergies Allergy Verified 09/06/24 12:05 Review of Systems Review of Systems: Constitutional : No Weight loss, No Fever, No Chills ENT/Mouth : No sore throat, No Rhinorrhea Eyes: No Eye Pain, No Swelling Cardiovascular : pos Chest Pain, pos SOB, no Dyspnea on Exertion, No Orthopnea, No Edema, No Palpitations Respiratory : No Cough, No Sputum Gastrointestinal : no Nausea, No Vomiting, No Diarrhea, No abdominal Pain, No Hematochezia, No Melena Genitourinary : No Dysuria, No Urinary Frequency Musculoskeletal : No joint pain, No Myalgias, No Joint Swelling Skin : No Skin Lesions, No rash Neuro : No Weakness, No Numbness, No Dizziness, No Headache Psych : No Anxiety/Panic, No Depression All other systems reviewed and are negative [facility] Past Medical History Attestation statement: The following information was validated with the patient. Source: old records reviewed Medical History No known health problems Social History Social History Alcohol intake: current Alcohol intake frequency: holidays/special occasions only Alcohol type: beer and wine Smoked in Last 30 Days: No Use of substances other than those prescribed or required for medical reasons: No Substance Use Type: Crack/Cocaine Advance Directives: No Advance Directives Information Provided: No Do you have a plan to hurt others: No Plan Physical Exam Vital Signs: Vital Signs: Last Vital Signs Temp 98.2 F 09/06/24 12:02 Pulse 64 09/06/24 12:26 Resp 20 09/06/24 12:02 BP 122/51 L 09/06/24 12:02 Pulse Ox 98 09/06/24 12:02 O2 Del Method Room Air 09/06/24 12:02 BMI result Body Mass Index 31.3 Appearance: Alert. Oriented X3. No acute distress. Eyes: Pupils equal, round and reactive to light. ENT: Pharynx normal. Neck: Normal inspection. Neck supple. CVS: Normal heart rate and rhythm. Pulses normal. Respiratory: No respiratory distress. Breath sounds normal. Abdomen: Soft and non-tender. Skin: Skin warm and dry. Normal skin color. Normal skin turgor. Extremities: No lower extremity edema. No calf ttp Neuro: Oriented X 3. No motor deficit. No sensory deficit. Course Course Course Narrative: This is a Rapid Medical Examination (RME) performed by Kendrick Guallpa PA-C in triage. Full HPI, ROS, assessment and treatment plan per primary provider in the Main ED. 34 yo male here w/ intermittent chest tightness and sob x3 days. denies respiratory sx. + well appearing. Plan: labs, viral serology, CXR, ekg Medical Decision Making Medical Decision Making [facility] Narrative: 34 yo male with PMH of GERD here with c/o atypical chest tightness and dyspnea after eating has no abdominal pain no n/v/d. He denies any recent travel or procedures. No cough or fever. Did just start PPI at this time basic labs, EKG, CXR, trop x 1 - suspect more biliary. PERC negative, not in pain laughing on phone distal pulses intact doubt dissection Differential Diagnosis Differential Diagnoses: The differential diagnosis associated with the presentation includes esophageal spasm, GERD, atypical chest pain Admission/Observation Consideration of admission/observation: Escalation of care including admission/observation considered Lab Data [facility] Lab Attestation statement: I reviewed the patient's lab results. 09/06/24 12:32 09/06/24 12:32 Labs: Lab Results 09/06/24 Range/Units 12:32 WBC 5.8 (4.8-10.8) X10*3/uL RBC 4.59 L (4.60-5.80) X10*6/uL Hgb 14.2 (14.0-18.0) g/dl Hct 41.5 L (42.0-52.0) % MCV 90.4 (80.0-98.0) fL MCH 30.9 (27.0-33.0) pg MCHC 34.2 (31.0-36.0) g/dl RDW 12.2 (11.0-16.0) % Plt Count 265 (160-400) X10*3/uL MPV 9.7 (9.4-12.4) fL Immature Gran % (Auto) 0.3 (0.0-0.4) % Neut % (Auto) 69.4 (45-73) % Lymph % (Auto) 20.1 (20-40) % Mathews % (Auto) 8.3 (2-11) % Eos % (Auto) 1.6 (0-4) % Baso % (Auto) 0.3 (0-2) % Lymph # (Auto) 1.2 (1.2-4.9) X10*3/uL Mathews # (Auto) 0.5 (0.1-1.2) X10*3/uL Eos # (Auto) 0.1 (0.0-0.4) X10*3/uL Baso # (Auto) 0.0 (0.0-0.2) X10*3/uL Abs Immat Gran (auto) 0.02 (0.00-0.03) X10*3/uL Absolute Neuts (auto) 4.0 (2.0-8.3) x10*3/uL Absolute Nucleated RBC 0.000 (0.0-0.012) X10*3/uL Nucleated RBC % (auto) 0.0 (0.0-0.2) /100WBC Sodium 138 (135-145) mmol/L Potassium 3.8 (3.3-5.1) mmol/L Chloride 102 (96-108) mmol/L Carbon Dioxide 30 H (22-29) mmol/L Anion Gap 10 L (12-20) BUN 12 (9-16) mg/dL Creatinine 0.96 (0.5-1.4) mg/dL Estim Creat Clear Calc 117.9 Estimated GFR > 60 Random Glucose 104 (60-115) mg/dL Calcium 9.5 (8.4-10.2) mg/dL Magnesium 2.0 (1.6-2.6) mg/dL Total Bilirubin 0.8 (0.0-1.0) mg/dL AST 17 (5-37) U/L ALT 14 (0-40) U/L Alkaline Phosphatase 82 (39-117) U/L Troponin I High Sens < 2.7 (<3.5-35.0) ng/L Total Protein 7.1 (6.5-8.0) g/dL Albumin 4.0 (3.5-5.0) g/dL Lipase 15 (8-78) U/L Independent Interpretation I performed an independent interpretation of an: EKG and Plain X-Ray Interpretation: Rate: 56 Rhythm: sinus bradycardia [place]: normal Normal P waves. Normal ELSIE. Normal QRS complex. ST T wave : no RORY, normal qTC: 384 prior studies: no change from prior The study has been interpreted contemporaneously by me. . Radiology Impression Discussion of test interpretation with radiology: I have reviewed the radiologist's reading. External Record Review External record reviewed: Outpatient record Discharge Plan Discharge Clinical Impression: Atypical chest pain Patient Disposition: Home, Self-Care Instructions: Chest Pain (ED) Additional Instructions: labs normal and reassuring Chest xray and EKG normal please follow up with your doctor return for any worsening symptoms or concerns YOU HAVE TO CHANGE YOUR DIET Prescriptions: No Action acetaminophen [Tylenol Extra Strength] 500 mg tablet 1,000 mg PO QID PRN (Reason: fever or pain) Qty: 14 0RF cyclobenzaprine 10 mg tablet 10 mg PO Q8H PRN (Reason: Muscle spasm) Qty: 14 0RF oxycodone 5 mg tablet 5 mg PO Q6H PRN (Reason: pain) Qty: 14 0RF penicillin V potassium 500 mg tablet 500 mg PO BID 10 Days Qty: 20 0RF naproxen 500 mg tablet 500 mg PO BID 7 Days Qty: 14 0RF chlorhexidine gluconate [Peridex] 0.12 % mouthwash 15 ml buccal BID Qty: 118 0RF acetaminophen [Tylenol] 325 mg tablet 325 mg PO QID PRN (Reason: pain) Qty: 90 0RF doxycycline hyclate 100 mg capsule 100 mg PO BID Qty: 20 0RF ibuprofen 400 mg tablet 400 mg PO Q6H PRN (Reason: Pain) Qty: 60 0RF morphine 15 mg tablet 7.5 mg PO Q8H PRN (Reason: pain) Qty: 10 0RF Rx Instructions: Partial Fill upon patient request. omeprazole 40 mg capsule,delayed release(DR/EC) 40 mg PO DAILY Qty: 30 0RF Print Language: Tajik
[2024-09-06 12:26] VITALS: PULSE 64
--- NOTE | 2024-09-06 12:29 | PC.NURSE ---
Patient reports left and right sided chest pain and tightness for last three days. Reports has been having abdominal issues lately and thinks it could be related. Denies headache but reports occasional SOB
[2024-09-06 12:37] LABS: MANUAL DIFF FLAG NO
[2024-09-06 12:41] LABS: Basophils Percent Auto 0.3 % (0-2); Eosinophils Absolute Auto 0.1 X10*3/uL (0.0-0.4); Eosinophils Percent Auto 1.6 % (0-4); Hematocrit 41.5 % (42.0-52.0); Hemoglobin 14.2 g/dl (14.0-18.0); Imm Gran Abs Auto 0.02 X10*3/uL (0.00-0.03); Imm Gran Pct Auto 0.3 % (0.0-0.4); Lymphocytes Absolute Auto 1.2 X10*3/uL (1.2-4.9); Lymphocytes Percent Auto 20.1 % (20-40); Mean Corpuscular HGB Conc 34.2 g/dl (31.0-36.0); Mean Corpuscular Hemoglobin 30.9 pg (27.0-33.0); Mean Corpuscular Volume 90.4 fL (80.0-98.0); Mean Platelet Volume 9.7 fL (9.4-12.4); Monocytes Absolute Auto 0.5 X10*3/uL (0.1-1.2); Monocytes Percent Auto 8.3 % (2-11); Neutrophils Percent Auto 69.4 % (45-73); Platelet Count 265 X10*3/uL (160-400); Red Blood Count 4.59 X10*6/uL (4.60-5.80); Red Cell Distribution Width 12.2 % (11.0-16.0); White Blood Count 5.8 X10*3/uL (4.8-10.8)
[2024-09-06 12:51] LABS: Alanine Aminotransferase 14 U/L (0-40); Alkaline Phosphatase 82 U/L (39-117); Anion Gap 10 (12-20); Aspartate Amino Transferase 17 U/L (5-37); Bilirubin Total 0.8 mg/dL (0.0-1.0); Blood Urea Nitrogen 12 mg/dL (9-16); Calcium 9.5 mg/dL (8.4-10.2); Carbon Dioxide 30 mmol/L (22-29); Chloride 102 mmol/L (96-108); Creatinine Clr Calc Pharmacy 117.9; Estimated Glomerular Filt Rate > 60; Glucose Random 104 mg/dL (60-115); Lipase 15 U/L (8-78); Potassium 3.8 mmol/L (3.3-5.1); Sodium 138 mmol/L (135-145); Total Protein 7.1 g/dL (6.5-8.0)
[2024-09-06 12:59] LABS: Troponin-I High Sensitivity < 2.7 ng/L (<3.5-35.0)
[2024-09-06 13:33] LABS: Influenza A PCR NEGATIVE (Negative); Influenza B PCR NEGATIVE (Negative); Resp Syncy Virus RNA Qual PCR NEGATIVE (Negative); SARS COV2 PCR INHOUSE NEGATIVE (Negative)
[2024-09-06 13:37] VITALS: BP 122/51; PULSE 59; RESP 18; TEMP 36.8; O2SAT 98
== END 2024-09-06 13:37 | disposition home or self-care (01) ==
PROVIDERS: Physician Assistant Medical; Emergency Provider Emergency Medicine; PCP Internal Medicine
DX: R07.89 Other chest pain (principal); R06.00 Dyspnea, unspecified; R00.1 Bradycardia, unspecified; Z03.818 Encounter for observation for suspected exposure to other biological agents ruled out; Z79.899 Other long term (current) drug therapy
CPT/HCPCS: 0241U; 36415; 71046; 80053; 83690; 83735; 84484; 85025; 93005; 99283; 99284

== ENCOUNTER → 2024-09-06 11:55 | Outpatient (BNV) | payer OTHER, SELFPAY | PROVIDERS: Emergency Provider Emergency Medicine; PCP Internal Medicine; Visit Provider Internal Medicine | DX: R00.1 Bradycardia, unspecified (principal) | CPT/HCPCS: 93010 ==

== ENCOUNTER 2024-09-19 15:41 | Emergency (ER) | payer OTHER, SELFPAY ==
--- NOTE | 2024-09-19 15:43 | ECG_ITS ---
Test Reason : cp Blood Pressure : / mmHG Vent. Rate : 063 BPM Atrial Rate : 063 BPM P-R Int : 146 ms QRS Dur : 096 ms QT Int : 400 ms P-R-T Axes : 000 029 051 degrees QTc Int : 409 ms Normal sinus rhythm Normal ECG When compared with ECG of 06-SEP-2024 11:51, Non-specific change in ST segment in Inferior leads ST no longer elevated in Lateral leads Referred By: Generic ED Physician Electronically Signed By:JENNIFER MELO MD
[2024-09-19 16:01] VITALS: BP 132/78; PULSE 66; RESP 18; TEMP 36.6; O2SAT 98; BMI 31.9
--- NOTE | 2024-09-19 16:03 | ED.GENADULT ---
HPI - General Adult General Stated complaint: Chest pain Related Data Previous Rx's ?Medication ?Instructions ?Recorded acetaminophen 500 mg tablet 1,000 mg (2 x 500 mg) PO QID PRN 12/07/21 (Tylenol Extra Strength) fever or pain #14 tabs cyclobenzaprine 10 mg tablet 10 mg PO Q8H PRN Muscle spasm #14 12/07/21 tabs oxycodone 5 mg tablet 5 mg PO Q6H PRN pain #14 tabs 12/07/21 acetaminophen 325 mg tablet 325 mg PO QID PRN pain #90 tabs 01/02/24 (Tylenol) doxycycline hyclate 100 mg capsule 100 mg PO BID Cellulitis #20 caps 01/02/24 ibuprofen 400 mg tablet 400 mg PO Q6H PRN Pain #60 tabs 01/02/24 morphine 15 mg immediate release 7.5 mg (1/2 x 15 mg) PO Q8H PRN 01/02/24 tablet pain #10 tabs chlorhexidine gluconate 0.12 % 15 ml buccal BID #118 mL 03/23/24 mouthwash (Peridex) naproxen 500 mg tablet 500 mg PO BID 7 days #14 tabs 03/23/24 penicillin V potassium 500 mg 500 mg PO BID 10 days #20 tabs 03/23/24 tablet omeprazole 40 mg capsule,delayed 40 mg PO DAILY #30 caps 07/01/24 release Allergies Allergy/AdvReac Type Severity Reaction Status Date / Time No Known Allergies Allergy Verified 09/19/24 16:03 PMFSH Past Medical History Medical History No known health problems Social History Social History Alcohol intake: current Alcohol intake frequency: holidays/special occasions only Alcohol type: beer and wine Substance Use Type: Crack/Cocaine Course Course Course Narrative: RME, this is a rapid medical exam performed by [facility] please refer to primary provider for complete H&P- 34-year-old male with history of atypical chest pain, GERD presents for evaluation of chest pain started a few hours prior to arrival he reportedly felt like he was going to pass out but did not. He took some aspirin at home in his symptoms have improved but he still complains of 7/10 chest pain. Plan for labs, EKG. He was here twice in the last month for similar complaints Discharge Plan Discharge Prescriptions: No Action acetaminophen [Tylenol Extra Strength] 500 mg tablet 1,000 mg PO QID PRN (Reason: fever or pain) Qty: 14 0RF cyclobenzaprine 10 mg tablet 10 mg PO Q8H PRN (Reason: Muscle spasm) Qty: 14 0RF oxycodone 5 mg tablet 5 mg PO Q6H PRN (Reason: pain) Qty: 14 0RF penicillin V potassium 500 mg tablet 500 mg PO BID 10 Days Qty: 20 0RF naproxen 500 mg tablet 500 mg PO BID 7 Days Qty: 14 0RF chlorhexidine gluconate [Peridex] 0.12 % mouthwash 15 ml buccal BID Qty: 118 0RF acetaminophen [Tylenol] 325 mg tablet 325 mg PO QID PRN (Reason: pain) Qty: 90 0RF doxycycline hyclate 100 mg capsule 100 mg PO BID Qty: 20 0RF ibuprofen 400 mg tablet 400 mg PO Q6H PRN (Reason: Pain) Qty: 60 0RF morphine 15 mg tablet 7.5 mg PO Q8H PRN (Reason: pain) Qty: 10 0RF Rx Instructions: Partial Fill upon patient request. omeprazole 40 mg capsule,delayed release(DR/EC) 40 mg PO DAILY Qty: 30 0RF Print Language: Singaporean
== END 2024-09-19 21:52 | disposition left against medical advice (07) ==
PROVIDERS: Emergency Provider Internal Medicine
DX: R07.9 Chest pain, unspecified (principal); Z53.21 Procedure and treatment not carried out due to patient leaving prior to being seen by health care provider
CPT/HCPCS: 93005; 99281; 99283

== ENCOUNTER → 2024-09-19 15:43 | Outpatient (BNV) | payer OTHER, SELFPAY | PROVIDERS: Emergency Provider Internal Medicine; Visit Provider Internal Medicine Cardiovascular Disease | DX: R07.9 Chest pain, unspecified (principal) | CPT/HCPCS: 93010 ==

== ENCOUNTER 2024-11-09 10:36 | Emergency (ER) | payer OTHER, SELFPAY ==
--- NOTE | ~2024-11-09 | XR_ITS ---
CLINICAL HISTORY: constipated 1 view abdomen Comparison: None Findings: No pneumoperitoneum or pneumatosis. Mild to moderate fecal retention. No abnormal calcifications. No acute fractures. IMPRESSION: Mild to moderate fecal retention. No small bowel obstruction or free air. This document has been electronically signed by: Anuj Arango MD on 11/09/2024 12:05:14
[2024-11-09 10:38] VITALS: BP 119/63; PULSE 68; RESP 16; TEMP 36.8; O2SAT 99; BMI 31.1
--- NOTE | 2024-11-09 11:31 | ED.GENADULT ---
HPI - General Adult General Chief complaint: General Medical Stated complaint: constipation Time Seen by Provider: 11/09/24 11:22 Source: patient Mode of arrival: ambulatory Limitations: no limitations History of Present Illness ED Provider: Neto Chirinos DO HPI narrative: 34-year-old male with past medical history of GERD presents to the ED for constipation with no major bowel movements for approximately 6 days. Patient states when he has passed his stool it has been hard palates. He tried MiraLax 1 capful 5 days ago and 3 days ago with no relief. He also try Dulcolax and senna as well as application of a suppository several days ago with no relief. He denies using any opiates at this time and last had an Advil p.m. a week ago. Typically moves his bowels 3 times a week. He reports some nausea at this time but denies vomiting, diarrhea, fevers, abdominal pain, chest pain or decreased flatus. Related Data Previous Rx's ?Medication ?Instructions ?Recorded acetaminophen 500 mg tablet 1,000 mg (2 x 500 mg) PO QID PRN 12/07/21 (Tylenol Extra Strength) fever or pain #14 tabs cyclobenzaprine 10 mg tablet 10 mg PO Q8H PRN Muscle spasm #14 12/07/21 tabs oxycodone 5 mg tablet 5 mg PO Q6H PRN pain #14 tabs 12/07/21 acetaminophen 325 mg tablet 325 mg PO QID PRN pain #90 tabs 01/02/24 (Tylenol) doxycycline hyclate 100 mg capsule 100 mg PO BID Cellulitis #20 caps 01/02/24 ibuprofen 400 mg tablet 400 mg PO Q6H PRN Pain #60 tabs 01/02/24 morphine 15 mg immediate release 7.5 mg (1/2 x 15 mg) PO Q8H PRN 01/02/24 tablet pain #10 tabs chlorhexidine gluconate 0.12 % 15 ml buccal BID #118 mL 03/23/24 mouthwash (Peridex) naproxen 500 mg tablet 500 mg PO BID 7 days #14 tabs 03/23/24 penicillin V potassium 500 mg 500 mg PO BID 10 days #20 tabs 03/23/24 tablet omeprazole 40 mg capsule,delayed 40 mg PO DAILY #30 caps 07/01/24 release polyethylene glycol 3350 17 17 g PO BID #510 grams 11/09/24 gram/dose oral powder (Miralax) sodium phosphates 19 gram-7 118 ml MN DAILY PRN constipation 11/09/24 gram/118 mL enema (Enema) #532 mL Allergies Allergy/AdvReac Type Severity Reaction Status Date / Time No Known Allergies Allergy Verified 11/09/24 10:43 Review of Systems Review of Systems: Yes all other systems are reviewed and are negative [facility] Past Medical History Medical History No known health problems Social History Social History Alcohol intake: current Alcohol intake frequency: holidays/special occasions only Alcohol type: beer and wine Substance Use Type: Crack/Cocaine Advance Directives: No Advance Directives Information Provided: No Do you have a plan to hurt others: No Plan Physical Exam ED Vital Signs: Vital Signs - 24 hr 11/09/24 10:38 11/09/24 11:37 11/09/24 14:27 Temperature 98.3 F 97.8 F Pulse Rate 68 62 66 Respiratory Rate 16 16 16 Blood Pressure 119/63 119/61 126/68 Pulse Oximetry 99 98 99 Oxygen Delivery Method Room Air Room Air Room Air BMI result Body Mass Index 31.1 Constitutional: ?Alert, oriented, speaking in full sentences HEENT: ?Normocephalic, atraumatic. ?Moist mucous membranes Eyes: ?PERRL, EOMI Neck: ?Supple, nontender Chest: ?No chest wall tenderness Respiratory: no increased work of breathing GI: ?Soft, nondistended, nontender, rectal exam performed with Larissa covington, present. There is relatively firm stool high in the rectal vault. No impaction. There is also an external hemorrhoid noted. Back: ?Normal range of motion, nontender Skin: ?No rash, no lesions Neuro: ?Alert and oriented to person, place and time, moves all 4 extremities, no focal deficits Extremities: ?No swelling or tenderness, full range of motion Psych: ?Calm, alert and cooperative, appropriate behavior Medications Administered Discontinued Medications Generic Name Dose Route Start Last Admin Trade Name Freq PRN Reason Stop Dose Admin Famotidine 20 mg 11/09/24 12:22 11/09/24 12:42 Famotidine 20 Mg Tablet PO 11/09/24 12:23 20 mg ONCE ONE Administration Sodium Biphosphate/Sodium Phosphate 133 ml 11/09/24 14:08 11/09/24 14:39 Sodium Phosphate,Day-Dibasic 133 Ml Enema MN 11/09/24 14:09 133 ml ONCE ONE Administration Sucralfate 1 gm 11/09/24 12:22 11/09/24 12:42 Sucralfate Oral Suspension 1 Gm/10 Ml Oral.Susp PO 11/09/24 12:23 1 gm ONCE ONE Administration Medical Decision Making Medical Decision Making MDM Narrative: Patient presenting with signs and symptoms consistent of constipation. His presentation is not consistent with bowel obstruction or other dangerous etiology. I discussed with the patient effect of diphenhydramine on constipation. I also discussed management at home with more MiraLax. At this time, the patient elects to have a soapsuds enema administered to evaluate for relief. There is no stool at the rectal vault that is amenable to disimpaction. Soapsuds enema did not significantly improve the patient is stool burden as he was unable to tolerate the amount of fluid. We then tried a Fleet enema and the patient was able to evacuate a large volume of stool. We will prescribe MiraLax and encouraged this as well as Fleet enema as needed at home with return precautions for any signs of obstruction. Patient agrees with plan. Admission/Observation Consideration of admission/observation: Escalation of care including admission/observation considered Independent Interpretation I performed an independent interpretation of an: Plain X-Ray (Abdominal x-ray per my independent interpretation shows moderate stool down to the rectum, no free air.) Radiology Impression Discussion of test interpretation with radiology: I have reviewed the radiologist's reading. Discharge Plan Discharge Clinical Impression: Constipation Qualifiers: Constipation type: unspecified constipation type Qualified Code(s): K59.00 - Constipation, unspecified Patient Disposition: Home, Self-Care Instructions: Constipation (ED) Additional Instructions: For the next several days to 1 week at home continue taking MiraLax 1 capful twice a day until you feel your constipation has resolved. You can also continue senna and suppositories as needed for the next week. To avoid constipation in the future, avoid any medications that can slow your GI tract which includes Benadryl which is and Advil PM as well as any narcotics. Continue drinking lots of water and eating 25-35 g of fiber per day. Return to the emergency department with any worsening symptoms, such as inability to pass gas, persistent vomiting or any other acute concerns. Prescriptions: New polyethylene glycol 3350 [Miralax] 17 gram/dose powder 17 g PO BID Qty: 510 0RF Enema 19-7 gram/118 mL enema 118 ml MN DAILY PRN (Reason: constipation) Qty: 532 0RF Rx Instructions: 4 enemas No Action acetaminophen [Tylenol Extra Strength] 500 mg tablet 1,000 mg PO QID PRN (Reason: fever or pain) Qty: 14 0RF cyclobenzaprine 10 mg tablet 10 mg PO Q8H PRN (Reason: Muscle spasm) Qty: 14 0RF oxycodone 5 mg tablet 5 mg PO Q6H PRN (Reason: pain) Qty: 14 0RF penicillin V potassium 500 mg tablet 500 mg PO BID 10 Days Qty: 20 0RF naproxen 500 mg tablet 500 mg PO BID 7 Days Qty: 14 0RF chlorhexidine gluconate [Peridex] 0.12 % mouthwash 15 ml buccal BID Qty: 118 0RF acetaminophen [Tylenol] 325 mg tablet 325 mg PO QID PRN (Reason: pain) Qty: 90 0RF doxycycline hyclate 100 mg capsule 100 mg PO BID Qty: 20 0RF ibuprofen 400 mg tablet 400 mg PO Q6H PRN (Reason: Pain) Qty: 60 0RF morphine 15 mg tablet 7.5 mg PO Q8H PRN (Reason: pain) Qty: 10 0RF Rx Instructions: Partial Fill upon patient request. omeprazole 40 mg capsule,delayed release(DR/EC) 40 mg PO DAILY Qty: 30 0RF Print Language: [place]
[2024-11-09 11:37] VITALS: BP 119/61; PULSE 62; RESP 16; TEMP 36.6; O2SAT 98
[2024-11-09] MEDS: Sucralfate Oral Suspension 1 GM/10 ML ORAL.SUSP PO (12:42)
[2024-11-09] MEDS: Famotidine 20 MG TABLET PO (12:42)
[2024-11-09 14:27] VITALS: BP 126/68; PULSE 66; RESP 16; O2SAT 99
[2024-11-09] MEDS: Sodium Phosphate,Mono-Dibasic 133 ML ENEMA PR (14:39)
[2024-11-09 16:05] VITALS: BP 126/68; PULSE 66; RESP 16; TEMP 36.6; O2SAT 99
== END 2024-11-09 16:09 | disposition home or self-care (01) ==
PROVIDERS: Emergency Provider Emergency Medicine
DX: K59.00 Constipation, unspecified (principal); R10.2 Pelvic and perineal pain
CPT/HCPCS: 74018; 99283

== ENCOUNTER → 2024-11-09 10:50 | Outpatient (BNV) | payer OTHER, SELFPAY | PROVIDERS: Emergency Provider Emergency Medicine; Visit Provider Radiology Vascular & Interventional Radiology | DX: K56.41 Fecal impaction (principal) | CPT/HCPCS: 74018 ==

== ENCOUNTER 2024-11-11 05:40 | Emergency (ER) | payer OTHER, SELFPAY ==
[2024-11-11 05:50] VITALS: BP 113/42; PULSE 65; RESP 16; TEMP 36.7; O2SAT 98; BMI 31.2
--- OUTSIDE RECORDS SUMMARY | 2024-11-11 06:12 | XMS_ITS | Clinical Summary ---
Author Organization [facility] [address] [place] [address] [place] [phone] Phone Care Team Providers Care Enrollment Representative Name Role Phone Srikanth Goldsmith MD Primary Care Provider [phone] Allergies No known active allergies Medications Medication Sig Dispensed Refills Start Date End Date Status triamcinolone (KENALOG) 0.1 % cream Apply to affected area(s) twice daily for 2 weeks. 11/22/2023 Active docusate sodium (COLACE) 100 mg capsule Take 1 capsule (100 mg total) by mouth 2 (two) times a day. 180 capsule 1 09/22/2024 Active omeprazole (PriLOSEC) [address] capsule Take 1 capsule (40 mg total) by mouth 1 (one) time each day. Do not crush or chew. 90 each 1 09/22/2024 Active senna (SENOKOT) 8.6 mg tablet Take 1 tablet (8.6 mg total) by mouth 1 (one) time each day. 90 tablet 1 09/22/2024 Active cholecalciferol (VITAMIN D-3) 50 mcg (2,000 unit) tablet Take 1 tablet (2,000 Units total) by mouth 1 (one) time each day. 90 tablet 3 09/22/2024 Active Active Problems Problem Noted Date Diagnosed Date Straining with stools 08/13/2024 Dry skin 12/05/2017 Encounters Date Type Department Care Team Description 10/02/2024 10:30 AM EST Ancillary Procedure [facility] [address] [place] [address] Precordial pain; Heart palpitations 09/22/2024 8:15 AM EST Office Visit [address] [phone] Srikanth Goldsmith MD Constipation, unspecified constipation type (Primary Dx); Gastroesophageal reflux disease without esophagitis 09/02/2024 11:00 AM EST Office Visit [address] [phone] Srikanth Goldsmith MD Precordial pain (Primary Dx); Heart palpitations; Gastroesophageal reflux disease without esophagitis; Mixed hyperlipidemia from Last 3 Months Immunizations Name Administration Dates Next Due Influenza Quadravalent, MDCK , 0.5ml, preservative free (Flucelvax) 6mo and older 06/20/2022 Tdap Tetanus diptheria acell ular pertussis (Boostrix; Adacel) 7yo and older 12/05/2017 Surgical History Surgery Date Site/Laterality Comments APPENDECTOMY 2009 PROCEDURE: ID APPENDECTOMY Medical History Medical History Date Comments Straining with stools DX:Straini ng with stools Esophageal reflux DX:Esophageal reflux Family History Medical History Relation Name Comments No Known Problems Father Asthma Mother Depression Mother Hypertension Mother No Known Problems Sister 1 No Known Problems Sister 2 Relation Name Status Comments Father Alive Mother Alive Sister 1 Alive Sister 2 Alive Social History Tobacco Use Types Packs/Day Years Used Date Smoking Tobacco: Former Smokeless Tobacco: Former Tobacco Cessation:Counseling Given: Not Answered Alcohol Use Standard Drinks/Week Comments Yes 0 (1 standard drink = 0.6 oz pur e alcohol) Sex and Gender Information Value Date Recorded Sex Assigned at Not on file Gender Identity Not on file Sexual Orientation Not on file Job Start Date Occupation Industry Not on file Not on file Not on file Obstetrics History Last Filed Vital Signs Vital Sign Reading Time Taken Comments Blood Pressure 118/64 09/22/2024 8:15 AM EST Pulse 62 09/22/2024 8:15 AM EST Temperature 36.5 ??C (97.7 ??F) 09/22/2024 8:15 AM ES T Respiratory Rate 14 09/22/2024 8:15 AM EST Oxygen Saturation 98% 09/22/2024 8:15 AM EST Inhaled Oxygen Concentration - - Weight 93.9 kg (207 lb) 09/22/2024 8:15 AM EST Height 172.7 cm (5' 8 ) 09/22/2024 8:15 AM EST Body Mass Index 31.47 09/22/2024 8:15 AM EST Plan of Treatment Upcoming Encounters Date Type Department Care Team (Late st Contact Info) Description 11/14/2024 8:00 AM EST Office Visit Adult Medicine [facility] [place] [address] [place] [phone] Srikanth Goldsmith MD [address] [place] [address] Health Maintenance Due Date Last Done Comments Hepatitis B Vaccines (1 of 3 - 19+ 3-dose series) 2007 HIV Screening 09/10/2022 Social Influencers of Health Screening 09/10/2022 COVID-19 Vaccine (3 - 2023-2 5 season) 2024 03/10/2021, 02/19/2021 Influenza Vaccine (#1) 2024 , 09/13/2009 Depression Screening 11/09/2024 11/09/2023 Cholesterol Screening (Lipid Panel) 09/02/2029 09/02/2024, 11/16/2023 DTaP,Tdap,and Td Vaccines (3 - Td or Tdap) 07/07/2032 07/07/2022, 12/05/2017 Pneumococcal Vaccine: Pediatrics (0 to 5 Years) and At-Risk Patients (6 to 64 Years) Aged Out 09/13/2009 No longer eligible b ased on patient's age to complete this topic Hepatitis C Screening Completed 11/16/2023 HIB Vaccines Aged Out No longer eligi ble based on patient's age to complete this topic HPV Vaccines Aged Out No longer eligi ble based on patient's age to complete this topic Hepatitis A Vaccines Aged Out No long er eligible based on patient's age to complete this topic IPV Vaccines Aged Out No longer eligi ble based on patient's age to complete this topic MMR Vaccines Aged Out No longer eligi ble based on patient's age to complete this topic Meningococcal ACWY Vaccine Aged Out N o longer eligible based on patient's age to complete this topic RSV Immunization Patients Under 20 months Aged Out No longer eligible b ased on patient's age to complete this topic Varicella Vaccines Aged Out No longer eligible based on patient's age to complete this topic Procedures Procedure Name Priority Date/Time Associated Diagnosis Comments CARDIAC HOLTER MONITOR (REPORT GENERATED IN HOUSE) Routine 10/02/2024 10:48 AM EST Precordial pain Heart palpitations ECG 12-LEAD Routine 09/17/2024 4:52 PM EST THYROID STIMULATING HORMONE WITH REFLEX TO FREE T4 AND FREE T3 Routine 09/02/2024 11:46 AM EST Precordial pain Heart palpitations LIPID PANEL WITH REFLEX TO DIRECT LDL Routine 09/02/2024 11:46 AM EST Precordial pain Heart palpitations Mixed hyperlipidemia HEPATITIS C SCREENING Routine 11/16/2023 DEPRESSION SCREENING Routine 11/09/2023 from Last 3 Months or Most Recently Relevant to Health Maintenance Results * CARDIAC HOLTER MONITOR (REPORT GENERATED IN HOUSE) (10/02/2024 10:48 AM EST) Anatomical Region Laterality Modality Cardiac Diagnost ic Narrative 10/07/2024 8:29 AM EST ?Benign Holter monitor with no arrhythmias. [facility] [address] [place] [address], [place] [address] TEL: FAX: Type of test: ??48 hour Holter Monitor Date of test: 10/02/24 Ordering provider: Srikanth Goldsmith MD Reason for Test: Palpitations [facility] Front Office Agent Findings: 1: Normal Sinus Rhythm with Sinus Bradycardia. 2: Heart rate range was 38- 156 bpm with an average of 70 bpm. Total time in Sinus Bradycardia was 18 hrs 41 mins. 3: Rare PACs and PJCs with a few atrial pairs. 4: No pauses noted. Longest R-R 1.6 sec. 5: No diary returned. Impression: Normal sinus rhythm with no documented arrhythmias. Srikanth Goldsmith MD [facility] PROCEDURES * ECG 12 lead (09/17/2024 4:52 PM EST) Historical Provider ECG ORDERABLES * Thyroid stimulating hormone with reflex to free t4 and free t3 (09/02/2024 11:46 AM EST) TSH 0.73 0.40 - 4.00 mcIU/mL LAB CHEMISTRY METHOD 09/02/2024 2:46 PM EST [facility] Blood Venous blood specimen / Unknown Venipuncture / Unknown 09/02/2024 11:46 AM EST 09/02/2024 11:46 AM EST Srikanth Goldsmith MD LAB BLOOD ORDERABLE S [facility] [address] [place] [address], * (ABNORMAL) Lipid panel with reflex to direct LDL (09/02/2024 11:46 AM EST) Pathologist [facility] Cholesterol 185 0 - 200 mg/dL LAB CHEMISTRY METHOD 09/02/2024 2:38 PM EST [facility] Triglycerides 219(H) 0 - 150 mg/dL LAB CHEMISTRY METHOD 09/02/2024 2:38 PM [facility] HDL 34(L) >=40 mg/dL LAB CHEMISTRY METHOD 09/02/2024 2:38 PM [facility] LDL Calculated 107(H) 0 - 100 mg/dL LAB CHEMISTRY METHOD 09/02/2024 2:38 PM EST [facility] VLDL Cholesterol Woo 43.8 mg/dL LAB CHEMISTRY METHOD 09/02/2024 2:38 PM [facility] Non HDL Chol. (LDL+VLDL) 151(H) <145 mg/dL LAB CHEMISTRY METHOD 09/02/2024 2:38 PM [facility] Chol/HDL Ratio 5.4(H) 0.0 - 4.4 LAB CHEMISTRY METHOD 09/02/2024 2:38 PM EST [facility] Blood Venous blood specimen / Unknown Venipuncture / Unknown 09/02/2024 11:46 AM EST 09/02/2024 11:46 AM EST Srikanth Goldsmith MD LAB BLOOD ORDERABLE S [facility] [address] [place] [address], * Hepatitis C Screening (11/16/2023) Pathologist [facility] Hepatitis C Screening abstracted Historical Provider MD MOSS MAINANGIE E * Depression Screening (11/09/2023) [facility] Depression Screening abstracted Historical Provider MD MOSS MAINANGIE E from Last 3 Months or Most Recently Relevant to Health Maintenance Care Teams Enrollment Representative Relationship Specialty Start Date End Date Srikanth Goldsmith MD [address] [place] [address] [place] PCP - General Internal Medicine 06/19/22
== END 2024-11-11 06:18 | disposition left against medical advice (07) ==
PROVIDERS: Emergency Provider Emergency Medicine
DX: K59.00 Constipation, unspecified (principal)
CPT/HCPCS: 99281